=== PATIENT | male | born 1960 | race Caucasian/White ===

== ENCOUNTER → 2019-04-16 13:47 | Outpatient (CLI) | payer OTHER, SELFPAY ==
[2019-04-16 13:59] LABS: Basophils # 0.1 K/mm3 (0-0.2); Basophils % 0.9 % (0.1-2.0); Eosinophils # 0.3 K/mm3 (0.0-0.4); Eosinophils % 5.2 % (0.1-12.0); Hematocrit 46.6 % (42.0-52.0); Hemoglobin 15.6 g/dL (14.1-18.0); Lymphocytes # 2.4 K/mm3 (0.7-4.5); Lymphocytes % 39.8 % (10-50); Mean Corpuscular HGB Conc 33.4 g/dL (31.8-35.4); Mean Corpuscular Volume 92.7 fl (80-94); Mean Platelet Volume 7.6 fl (7.4-10.4); Monocytes # 0.5 K/mm3 (0.1-1.0); Monocytes % 8.9 % (1.7-9.3); Neutrophils # 2.8 K/mm3 (1.8-7.8); Neutrophils % 45.2 % (37.0-80.0); Platelet Count 261 K/mm3 (142-424); Red Blood Count 5.03 M/mm3 (4.60-6.20); Red Cell Distribution Width 13.1 % (11.5-17.5); White Blood Count 6.1 K/mm3 (4.8-10.8)
[2019-04-16 14:27] LABS: Alanine Aminotransferase 56 U/L (12-78); Albumin Level 3.7 gm/dL (3.4-5.0); Albumin/Globulin Ratio 1.2 (1.1-1.8); Alkaline Phosphatase 64 U/L (46-116); Anion Gap 11.6 mEq/L (5-15); Aspartate Amino Transferase 27 U/L (15-37); Bilirubin,Total 0.3 mg/dL (0.2-1.0); Blood Urea Nitrogen 14 mg/dL (7-18); Calcium 8.2 mg/dL (8.5-10.1); Carbon Dioxide 29 mmol/L (21.0-32.0); Chloride 103 mmol/L (98-107); Cholesterol 135 mg/dL (140-200); Creatinine,Serum 0.96 mg/dL (0.70-1.30); Estimated Glomerular Filt Rate 80 ml/min (>60); Free T4 (Free Thyroxine) 0.85 ng/dl (0.76-1.46); GFR (African American) 97 ML/MIN (>60); Glucose 116 mg/dL (74-106); HDL Cholesterol 34 mg/dL (27-67); LDL Cholesterol 56 mg/dL (0-130); Potassium 3.6 mmoL/L (3.5-5.1); Sodium 140 mmol/L (136-145); Thyroid Stimulating Hormone 1.62 uIU/ml (0.358-3.740); Total Protein,Serum 6.7 gm/dL (6.4-8.2); Triglycerides 225 mg/dL (30-200); VLDL Cholesterol 45 mg/dL (0-40)
[2019-04-18 06:26] LABS: PSA, Free 0.64 ng/mL; Prostate Specific Ag 5.1 ng/mL (0.0-4.0); Vitamin D 25 Hydroxy 28.8 ng/mL (30.0-100.0)
== END ==
PROVIDERS: Visit Provider Emergency Medicine
DX: I10 Essential (primary) hypertension (principal); R53.83 Other fatigue; E55.9 Vitamin D deficiency, unspecified
CPT/HCPCS: 80053; 80061; 82652; 84153; 84154; 84439; 84443; 85025

== ENCOUNTER → 2019-10-02 07:42 | Outpatient (CLI) | payer OTHER, SELFPAY ==
[2019-10-02 08:16] LABS: Basophils # 0.1 K/mm3 (0-0.2); Basophils % 1.2 % (0.1-2.0); Eosinophils # 0.3 K/mm3 (0.0-0.4); Eosinophils % 4.8 % (0.1-12.0); Hematocrit 50.5 % (42.0-52.0); Hemoglobin 16.7 g/dL (14.1-18.0); Lymphocytes # 2.5 K/mm3 (0.7-4.5); Lymphocytes % 38.3 % (10-50); Mean Corpuscular Hemoglobin 32.5 pg (27.0-31.2); Mean Corpuscular Volume 98.6 fl (80-94); Monocytes # 0.4 K/mm3 (0.1-1.0); Monocytes % 6.6 % (1.7-9.3); Neutrophils # 3.2 K/mm3 (1.8-7.8); Neutrophils % 49.2 % (37.0-80.0); Platelet Count 222 K/mm3 (142-424); Red Blood Count 5.13 M/mm3 (4.60-6.20); Red Cell Distribution Width 12.9 % (11.5-17.5); White Blood Count 6.5 K/mm3 (4.8-10.8)
[2019-10-02 08:50] LABS: Erythrocyte Sedimentation Rate 3 mm/hr (0-20)
[2019-10-02 11:04] LABS: Anion Gap 11.7 mEq/L (5-15); Blood Urea Nitrogen 16 mg/dL (7-18); Carbon Dioxide 31 mmol/L (21.0-32.0); Chloride 101 mmol/L (98-107); Creatinine,Serum 0.95 mg/dL (0.70-1.30); Estimated Glomerular Filt Rate 81 ml/min (>60); GFR (African American) 99 ML/MIN (>60); Glucose 132 mg/dL (74-106); Potassium 3.7 mmoL/L (3.5-5.1); Sodium 140 mmol/L (136-145); Uric Acid 3.7 mg/dL (2.6-7.2)
[2019-10-02 11:12] LABS: C-Reactive Protein < 0.2 mg/dL (0.0-0.9)
[2019-10-03 18:57] LABS: Hemoglobin A1C 6.5 % (0.0-7.0)
[2019-10-04 11:17] LABS: Anti-Cyclic Citrullinated Pept 9 units (0-19); Antinuclear Antibodies, IFA Positive (.)
[2019-10-04 11:19] LABS: RA Latex Turbid. <10.0 IU/mL (0.0-13.9)
== END ==
PROVIDERS: Visit Provider Emergency Medicine
DX: I10 Essential (primary) hypertension (principal); M19.90 Unspecified osteoarthritis, unspecified site
CPT/HCPCS: 36415; 80048; 83036; 84550; 85025; 85651; 86038; 86140; 86200; 86431

== ENCOUNTER → 2019-10-19 08:27 | Outpatient (CLI) | payer OTHER, SELFPAY ==
--- NOTE | 2019-10-19 08:29 | CA_ITS ---
APPROVED REPORT Lathe Winder: Eun Haider RVT Study Quality: Good Indications: hypertension Risk Factors Hypertension Hyperlipidemia Renal Artery Doppler Proximal (R) 106.3/ cm/sec Mid (R) 96.1/ cm/sec Distal (R) 121.3/ cm/sec Renal Aorta Ratio (R) 1.42 Segmental A. (R) 40.1/17.3 cm/sec RI: 0.56 Segmental A. Sup (R) 40.1/17.3 cm/sec Segmental A. Mid (R) 26.4/10.9 cm/sec Segmental A. Inf (R) 21.0/10.0 cm/sec Proximal (L) 88.5/ cm/sec Mid (L) 100.6/ cm/sec Distal (L) 140.4/ cm/sec Renal Aorta Ratio (L) 1.64 Segmental A. (L) 80.8/27.5 cm/sec RI: 0.65 Segmental A. Sup (L) 48.0/25.7 cm/sec Segmental A. Mid (L) 66.3/29.1 cm/sec Segmental A. Inf (L) 80.8/27.5 cm/sec Renal Measurements Kidney Size (R) 12.2x7.5 cm Cortical Thickness (R) 1.3 cm Kidney Size (L) 12.5x7.6 cm Cortical Thickness (L) 2.1 cm Findings Study suggests no evidence of bilateral renal artery stenosis. 3.8 cm cyst mid left kidney. Conclusion Study suggests no evidence of bilateral renal artery stenosis. 3.8 cm complex appearing cyst mid left kidney. Recommend CT renals without and with contrast 3 phase Electronically signed by : Frank Vizcaino MD 10/19/2019 17:19:47
== END ==
PROVIDERS: PCP Emergency Medicine; Visit Provider Emergency Medicine
DX: I10 Essential (primary) hypertension (principal)
CPT/HCPCS: 93976

== ENCOUNTER → 2020-01-04 08:50 | Outpatient (CLI) | payer MEDICAID, SELFPAY ==
[2020-01-04 10:44] LABS: Chloride 96 mmol/L (98-107); Potassium 3.4 mmoL/L (3.5-5.1); Sodium 135 mmol/L (136-145)
[2020-01-04 10:47] LABS: Anion Gap 11.4 mEq/L (5-15); Blood Urea Nitrogen 15 mg/dl (9-20); Calcium 9.3 mg/dl (8.4-10.2); Carbon Dioxide 31 mmol/L (22.0-30.0); Estimated Glomerular Filt Rate 99 ml/min (>60); GFR (African American) 120 ML/MIN (>60); Glucose 100 mg/dl (74-100)
== END ==
PROVIDERS: Visit Provider Emergency Medicine
DX: Z01.818 Encounter for other preprocedural examination (principal)
CPT/HCPCS: 36415; 80048

== ENCOUNTER → 2021-05-26 12:38 | Outpatient (CLI) | payer MEDICAID, SELFPAY ==
--- NOTE | 2021-05-26 12:49 | XR_ITS ---
PROCEDURE: XR CHEST 2V CLINICAL HISTORY: CHEST WALL PAIN COMPARISON: No exams were available for comparison FINDINGS: The cardiomediastinal silhouette and pulmonary vascularity are within normal limits. There is tortuosity/ectasia of the descending thoracic aorta. Lungs are clear bilaterally. No acute bony abnormalities. IMPRESSION: No acute findings. Dictated by: Frank Vizcaino MD 05/26/2021 14:16 Frank Vizcaino MD in [place] 05/26/2021 14:16
--- NOTE | 2021-05-26 12:50 | XR_ITS ---
PROCEDURE: XR RIBS LT 2V CLINICAL INDICATION: RIB FX Rib pain following injury COMPARISON: No exams were available for comparison FINDINGS: Multiple views of the left ribs are obtained. No acute fracture or dislocation is evident. There is some minimal cortical thickening involving the lateral aspect of the left 9th rib suggesting a healing or old fracture. No lytic or blastic change. IMPRESSION: No acute fracture apparent. Suspect old or healing left 9th rib fracture laterally. Dictated by: Frank Vizcaino MD 05/26/2021 14:14 Frank Vizcaino MD in [place] 05/26/2021 14:14
== END ==
PROVIDERS: PCP Emergency Medicine; Visit Provider Emergency Medicine
DX: R07.89 Other chest pain (principal)
CPT/HCPCS: 71046; 71100

== ENCOUNTER 2022-03-29 13:07 | Emergency (ER) | payer MEDICAID, SELFPAY ==
--- NOTE | 2022-03-29 13:17 | HMH.EDUTC ---
[facility] [place] Disposition Clinical Impression: Left lower lobe pneumonia Qualifiers: Pneumonia type: due to unspecified organism Qualified Code(s): J18.9 - Pneumonia, unspecified organism Disposition: Home, Self-Care Condition on Discharge: Good Instructions: Pneumonia-Adult Additional Instructions: Drink plenty of fluids. Take tylenol or ibuprofen for pain or fever. Take the medications as directed. Follow up with your regular doctor. GO TO THE ER FOR ANY WORSENING SYMPTOMS Don't start the oral steroids until tomorrow, since you had the shot here today. The cough medication (promethazine dm) will make you drowsy, so don't drive or operate heavy machinery after taking it. Make sure you follow up with your primary care physician for a recheck very soon. Also, you need to have a repeat chest x-ray in 1 to 2 weeks to make sure this is getting better, but your pcp will be the one to order that. Prescriptions: Albuterol Sulfate [Albuterol Sulfate Hfa] 2 puffs IH Q6HP PRN 30 Days #1 each PRN Reason: Shortness Of Breath Transmission Status: Received by [facility] Promethazine/Dextromethorphan [Promethazine-Dm Syrup] 5 ml PO Q6HP PRN #240 ml PRN Reason: Cough Transmission Status: Received by [facility] Amoxicillin/Potassium Clav [Amox-Clav 875-125 mg Tablet] 1 tab PO BID #20 tab Transmission Status: Received by [facility] predniSONE [Deltasone 10mg tablet] 10 mg PO DAILY 9 Days #21 tab Transmission Status: Received by [facility] Referrals: Glen Barrera MD [Primary Care Provider] - Time of Disposition: 14:15 Medical Decision Making - Medical Records Medical records reviewed: No: I reviewed the patient's medical records. - Ashwin Inquiry Pt receiving controlled substance: No Vital Signs: 03/29/22 13:22 03/29/22 14:21 Temperature 98.0 F 98.0 F Temperature Source Oral Pulse Rate 78 Pulse Rate [Left Radial] 78 Respiratory Rate 20 20 Blood Pressure 138/86 Blood Pressure [Right Arm] 138/86 Blood Pressure Mean [Right Arm] 103 02 Sat by Pulse Oximetry 93 L Orders (Tests/Meds): ED MEDICATIONS Discontinued Medications Generic Name Dose Route Start Last Admin Trade Name Freq PRN Reason Stop Dose Admin Ceftriaxone Sodium 1 gm 03/29/22 13:52 03/29/22 14:04 Ceftriaxone 1gm Vial IM 03/29/22 13:53 1 gm ONCE ONE Administration Lidocaine HCl 0 ml 03/29/22 13:52 03/29/22 14:04 Lidocaine 1% 5ml Pf Vial IM 03/29/22 13:53 2 ml ONCE ONE Administration Methylprednisolone Sodium Succinate 125 mg 03/29/22 13:52 03/29/22 14:04 Methylprednisolone Sod Succ 125mg Vial IM 03/29/22 13:53 125 mg ONCE ONE Administration - Radiology Data #1 Image(s): Chest Image Reviewed: Yes I reviewed the patient's radiology image, Yes I have reviewed radiologist's interpretation Preliminary Findings: Abnormal PROCEDURE INFORMATION: Exam: XR Chest Exam date and time: 03/29/2022 1:24 PM Age: 61 years old Clinical indication: Cough; Additional info: Cough, congestion TECHNIQUE: Imaging protocol: XR of the chest. Views: 2 views. COMPARISON: CR XR CHEST 2V 05/26/2021 12:55 PM FINDINGS: Lungs: Small consolidation within the posterior left lower lobe, most compatible with pneumonia. Minimal bibasilar atelectasis. Pleural spaces: Unremarkable. No pleural effusion. No pneumothorax. Heart/Mediastinum: Normal. Bones/joints: No acute abnormality. IMPRESSION: Small consolidation within the posterior left lower lobe, most compatible with pneumonia. Recommend follow-up. [facility] [place] HPI - General Stated complaint: cough, sneezing, congestion Time Seen by Provider: 03/29/22 13:18 - History of Present Illness Provider Complaint: He c/o cough and chest congestion for the past 1 week. - Related Data Previous Rx's Medication Ins
[2022-03-29 13:22] VITALS: BP 138/86; PULSE 78; RESP 20; TEMP 36.7; O2SAT 93; BMI 27.9
[2022-03-29 14:21] VITALS: BP 138/86; PULSE 78; RESP 20; TEMP 36.7
== END 2022-03-29 14:37 | disposition home or self-care (01) ==
PROVIDERS: Emergency Provider Nurse Practitioner Family; PCP Emergency Medicine
DX: J18.9 Pneumonia, unspecified organism (principal); F17.210 Nicotine dependence, cigarettes, uncomplicated; Z20.822 Contact with and (suspected) exposure to COVID-19; Z79.1 Long term (current) use of non-steroidal anti-inflammatories (NSAID); Z79.899 Other long term (current) drug therapy; Z88.8 Allergy status to other drugs, medicaments and biological substances
CPT/HCPCS: 71046; 96372; 99213; C9803; G0463; J0696; U0003; U0005

== ENCOUNTER → 2022-04-21 13:40 | Outpatient (CLI) | payer MEDICAID, SELFPAY ==
--- NOTE | 2022-04-21 13:41 | CA_ITS ---
APPROVED REPORT EXAM: Comprehensive 2D, Doppler, and color-flow Echocardiogram Quality Assurance Specialist: Lissette Mcpherson, RCS, RVS Ht: 5 ft 8 in Wt: 184lbs BSA: 1.97 BP: 130/76 mmHg Indications: COPD, Pneumonia, DERIAN, Smoker, HTN 2D Dimensions IVSd 1.20 cm LVEF (Visual) 62.80 % PWd 1.16 cm LA Volume 30.20 mL LVDd 3.64 cm LA Volume Index 15.30 mL/m2 (M/F) 16-34 LVDs 2.43 cm Aortic Root 3.10 cm Left Atrium 3.13 cm LVOT 1.96 cm (M/F) 1.5-2.5 Ascending Aorta 2.62 cm M-Mode Dimensions LA Diam 3.28 cm (1.9-4.0) LVDd 4.35 cm (3.5-5.7) Ao Diam 3.64 cm (2.0-3.7) LVDs 3.08 cm (3.5-5.7) EF (Teich) 56.30% EPSs 0.33 cm FS 29.20% EDV (Teich) 85.40 mL TAPSE 1.18 (<1.7) ESV (Teich) 37.30 mL LV Diastology E Decel Time 187.00 (160-240 msec) E/A Ratio 1.18 MED E' 6.80 (< 7 cm/sec) MED A' 10.80 cm/s E'/MED E' Ratio 9.51 (>14) LAT E' 8.00 (<10 cm/sec) LAT A' 8.50 cm/s E/LAT E' Ratio 8.09 (>14) Aortic Valve LVOT Max 74.00 (70-110 cm/s) LVOT VTI 15.51 cm AoV Peak Gary. 124.00 (50-130 cm/s) AO Peak GR. 6.20 mmHg AO Mean GR. 3.10 (<5 mmHg) AO VTI 24.21 (18-25 cm) YUDELKA (VTI) 1.93 (2.5-4.5 cm2) Mitral Valve MV A Velocity 55.00 (40-130 cm/s) E/A Ratio 1.18 MV Decel. Time 187.00 (160-240 ms) MV Mean Gr. 0.80 (<2mmHg) MV PHT 53.00 ms Pulmonary Valve PV Peak Velocity 70.00 (50-150 cm/s) Tricuspid Valve TR P. Velocity 232.00 cm/s RAP Estimate 10.00 mmHg RVSP 31.50 mmHg Left Ventricle Left atrium is mildly enlarged, left ventricle is normal size mild concentric left ventricular hypertrophy, estimated ejection fraction 55% with no regional wall motion abnormality, grade 1 diastolic dysfunction seen without tissue Doppler evidence of raise left atrial pressure. Right Ventricle Right atrium and right ventricle mildly enlarged with normal contractility. Aortic Valve Aortic valve is minimally thickened and fibrosed there is no aortic stenosis or aortic insufficiency. Mitral Valve Mitral valve is grossly normal, there is trace mitral regurgitation. Tricuspid Valve Tricuspid grossly normal, there is trace tricuspid regurgitation, tricuspid regurgitation jet velocity is inadequate for calculation of the right ventricular systolic pressure. Pulmonic Valve Pulmonic valve is poorly visualized. Great Vessels Aortic root is normal size. Inferior vena cava is poorly visualized. Pericardium No significant pericardial effusion noted. Conclusion 1. Mild biatrial enlargement, normal left ventricular size with concentric left ventricular hypertrophy, estimated ejection fraction 55% with no regional wall motion abnormality, grade 1 diastolic dysfunction without tissue Doppler evidence of raise left atrial pressure. 2. Mildly enlarged right ventricle with normal contractility. 3. Trace mitral and tricuspid regurgitation. 4. No significant pericardial effusion noted. 5. Inferior vena cava is poorly visualized. Electronically signed by : Richard Figueroa MD 04/21/2022 19:35:57
--- NOTE | 2022-04-21 13:41 | CA_ITS ---
FINAL REPORT TECHNIQUE: Color Doppler, duplex Doppler and yun scale sonography of the bilateral neck arterial vasculature was performed. Velocities were measured in the carotid arteries. Stenosis evaluation based on the validated velocity criteria. CLINICAL HISTORY: BRUIT,HTN,HX OF SMOKING FINDINGS: The peak systolic velocity of the right common carotid artery is 113 cm/s. The peak systolic velocity of the right internal carotid artery is 81 cm/s and end diastolic velocity 34 cm/s. The ICA/CCA ratio is 0.92. No significant plaque is present. The right external carotid artery is patent. The right vertebral artery is patent with antegrade flow. The peak systolic velocity of the left common carotid artery is 97 cm/s. The peak systolic velocity of the left internal carotid artery is 90 cm/s and end diastolic velocity 41 cm/s. The ICA/CCA ratio is 0.92. No significant plaque is present. The left external carotid artery is patent.The left vertebral artery is patent with antegrade flow. IMPRESSION: No evidence of bilateral carotid stenosis. Bilateral patent vertebral arteries with antegrade flow. Reviewed, Interpreted and Dictated by Nick Dickson III, MD Transcribed by Priyanka Grimaldo Authenticated and . [facility]
--- NOTE | 2022-04-21 14:26 | CT_ITS ---
FINAL REPORT CLINICAL HISTORY: lung cancer screening FINDINGS: CT CHEST SCREENING CTDI vol (mGy): 2.90 DLP (mGy-cm): 96.38 Axial images were obtained from the lung apex to the mid abdomen by computed tomography. Low-dose protocol was utilized. FINDINGS: CHEST: There is no axillary adenopathy. There is no hilar or mediastinal mass or adenopathy. The heart is proper size. There are mild coronary artery calcifications. There is no pericardial or pleural effusion. Limited images of the upper abdomen are unremarkable. Lung window images demonstrate mild scarring. There is diffuse bronchial wall thickening consistent with bronchitis. There is a 3 mm nodule at the left major fissure which favors an intrafissural lymph node. There is a 2 mm medial right lower lobe nodule. IMPRESSION: Medial right lower lobe lung nodule. Lung RADS category 2. Recommend 12 month follow-up low-dose chest CT. Reviewed, Interpreted and Dictated by Nick Dickson III, MD Transcribed by Carly Jose Authenticated and [facility]
== END ==
PROVIDERS: PCP Emergency Medicine; Visit Provider Emergency Medicine
DX: Z87.891 Personal history of nicotine dependence (principal); Z12.2 Encounter for screening for malignant neoplasm of respiratory organs; R09.89 Other specified symptoms and signs involving the circulatory and respiratory systems; R01.1 Cardiac murmur, unspecified
CPT/HCPCS: 71271; 93306; 93880

== ENCOUNTER 2022-09-26 15:00 | Emergency (ER) | payer MEDICAID, SELFPAY ==
[2022-09-26 17:20] VITALS: BP 147/92; PULSE 77; RESP 24; TEMP 37.2; O2SAT 95; BMI 27.3
[2022-09-26 17:28] LABS: UTC Influenza A Antigen Positive (Negative); UTC Influenza B Antigen Negative (Negative)
--- NOTE | 2022-09-26 17:38 | EXP.UTC ---
Discharge Plan Disposition Patient Disposition: Home, Self-Care Condition: Good Prescriptions Prescriptions: New benzonatate 100 mg capsule 100 mg PO TID PRN (Reason: cough) Qty: 30 0RF guaifenesin [Mucinex] 600 mg tablet extended release 12hr 600 mg PO BID PRN (Reason: cough) Qty: 20 0RF No Action gemfibrozil 600 mg tablet See Rx Instructions .ROUTE .COMPLEX Qty: 180 0RF Dose Instruction: TAKE 1 TABLET BY MOUTH TWICE DAILY Rx Instructions: TAKE 1 TABLET BY MOUTH TWICE DAILY amlodipine 5 mg tablet See Rx Instructions .ROUTE .COMPLEX Qty: 90 3RF Dose Instruction: TAKE 1 TABLET BY MOUTH DAILY Rx Instructions: TAKE 1 TABLET BY MOUTH DAILY losartan 100 mg tablet See Rx Instructions .ROUTE .COMPLEX Qty: 90 3RF Dose Instruction: TAKE 1 TABLET BY MOUTH DAILY Rx Instructions: TAKE 1 TABLET BY MOUTH DAILY potassium chloride 20 mEq tablet extended release See Rx Instructions .ROUTE .COMPLEX Qty: 90 3RF Dose Instruction: TAKE 1 TABLET BY MOUTH DAILY Rx Instructions: TAKE 1 TABLET BY MOUTH DAILY ergocalciferol (vitamin D2) 1,250 mcg (50,000 unit) capsule See Rx Instructions .ROUTE .COMPLEX Qty: 14 3RF Dose Instruction: TAKE 1 CAPSULE BY MOUTH WEEKLY ON SAME DAY EACH WEEK Rx Instructions: TAKE 1 CAPSULE BY MOUTH WEEKLY ON SAME DAY EACH WEEK cholecalciferol (vitamin D3) 25 mcg (1,000 unit) capsule See Rx Instructions .ROUTE .COMPLEX Qty: 90 0RF Dose Instruction: TAKE 1 CAPULE BY MOUTH ONCE DAILY Rx Instructions: TAKE 1 CAPULE BY MOUTH ONCE DAILY carvedilol 12.5 mg tablet See Rx Instructions .ROUTE .COMPLEX Qty: 180 0RF Dose Instruction: TAKE 1 TABLET BY MOUTH TWICE DAILY Rx Instructions: TAKE 1 TABLET BY MOUTH TWICE DAILY hydrochlorothiazide 25 mg tablet See Rx Instructions .ROUTE .COMPLEX Qty: 90 0RF Dose Instruction: TAKE 1 TABLET BY MOUTH DAILY Rx Instructions: TAKE 1 TABLET BY MOUTH DAILY simvastatin 20 mg tablet See Rx Instructions .ROUTE .COMPLEX Qty: 90 0RF Dose Instruction: TAKE 1 TABLET BY MOUTH EVERY EVENING Rx Instructions: TAKE 1 TABLET BY MOUTH EVERY EVENING albuterol sulfate 8.5 GM HFA aerosol inhaler 2 puffs IH Q6HP PRN (Reason: Shortness Of Breath) 30 Days Qty: 1 5RF Referrals Follow up/Referrals: Glen Barrera MD [Primary Care Provider] - See instructions Activity Restrictions/Add. Instructions Additional Instructions/Restrictions: Over the counter Cold and flu medications that is safe for high blood pressure may help your symptoms Make sure to drink plenty of fluids Lots of rest Increase Fluids water, Gatorade, powerade, pedialyte,if /toddler/child Alternate Tylenol and / or ibuprofen as discussed for fever, aches, chills Follow up IMMEDIATELY with your family doctor for new or worsening Symptoms OR no noticeable improvement over the next 48-72 hours, 911 for difficulty or breathing You or your child area contagious until no fever, aches, chills for 24 hours with medication for symptoms Help Prevent the spread of influenza: ?Wash your hands often. Use soap and water. Wash your hands after you use the bathroom, change a child's diapers, or sneeze. Wash your hands before you prepare or eat food. Use gel hand cleanser that has 60% alcohol, when soap and water are not available. Do not touch your eyes, nose, or mouth unless you have washed your hands first. Cover your mouth when you sneeze or cough. Cough into a tissue or the bend of your arm. If you use a tissue, throw it away immediately and wash your hands. Clean shared items with a germ-killing flue cleaner. Clean table surfaces, doorknobs, and light switches. Do not share towels, silverware, and dishes with people who are sick. Wash bed sheets, towels, silverware
[2022-09-26 17:47] VITALS: BP 147/92; PULSE 77; RESP 24; TEMP 37.2; O2SAT 95
== END 2022-09-26 17:53 | disposition home or self-care (01) ==
PROVIDERS: Emergency Provider Nurse Practitioner; PCP Emergency Medicine
DX: J10.1 Influenza due to other identified influenza virus with other respiratory manifestations (principal); R50.9 Fever, unspecified; R05.9 Cough, unspecified; R06.02 Shortness of breath; M79.10 Myalgia, unspecified site; R09.81 Nasal congestion; R51.9 Headache, unspecified; I10 Essential (primary) hypertension; N40.0 Benign prostatic hyperplasia without lower urinary tract symptoms; Z79.51 Long term (current) use of inhaled steroids; Z79.899 Other long term (current) drug therapy; Z88.8 Allergy status to other drugs, medicaments and biological substances; Z85.828 Personal history of other malignant neoplasm of skin
CPT/HCPCS: 87804; 99213; G0463

== ENCOUNTER 2022-12-13 09:32 | Emergency (ER) | payer MEDICAID, SELFPAY ==
[2022-12-13 10:30] VITALS: BP 168/101; PULSE 73; RESP 20; TEMP 36.5; O2SAT 95; BMI 28.1
--- NOTE | 2022-12-13 10:51 | EXP.UTC ---
Discharge Plan Disposition Patient Disposition: Home, Self-Care Condition: Good Prescriptions Prescriptions: New prednisone 10 mg tablet 10 mg PO BID 5 Days Qty: 10 0RF azithromycin [Zithromax Z-Christiano] 250 mg tablet See Rx Instructions .ROUTE .COMPLEX 5 Days Qty: 6 0RF Rx Instructions: For 250 mg dose pack: take 500 mg today (day 1), then 250 mg for 4 days (days 2-5) No Action gemfibrozil 600 mg tablet See Rx Instructions .ROUTE .COMPLEX Qty: 180 0RF Dose Instruction: TAKE 1 TABLET BY MOUTH TWICE DAILY Rx Instructions: TAKE 1 TABLET BY MOUTH TWICE DAILY amlodipine 5 mg tablet See Rx Instructions .ROUTE .COMPLEX Qty: 90 3RF Dose Instruction: TAKE 1 TABLET BY MOUTH DAILY Rx Instructions: TAKE 1 TABLET BY MOUTH DAILY losartan 100 mg tablet See Rx Instructions .ROUTE .COMPLEX Qty: 90 3RF Dose Instruction: TAKE 1 TABLET BY MOUTH DAILY Rx Instructions: TAKE 1 TABLET BY MOUTH DAILY potassium chloride 20 mEq tablet extended release See Rx Instructions .ROUTE .COMPLEX Qty: 90 3RF Dose Instruction: TAKE 1 TABLET BY MOUTH DAILY Rx Instructions: TAKE 1 TABLET BY MOUTH DAILY ergocalciferol (vitamin D2) 1,250 mcg (50,000 unit) capsule See Rx Instructions .ROUTE .COMPLEX Qty: 14 3RF Dose Instruction: TAKE 1 CAPSULE BY MOUTH WEEKLY ON SAME DAY EACH WEEK Rx Instructions: TAKE 1 CAPSULE BY MOUTH WEEKLY ON SAME DAY EACH WEEK carvedilol 12.5 mg tablet See Rx Instructions .ROUTE .COMPLEX Qty: 180 0RF Dose Instruction: TAKE 1 TABLET BY MOUTH TWICE DAILY Rx Instructions: TAKE 1 TABLET BY MOUTH TWICE DAILY simvastatin 20 mg tablet See Rx Instructions .ROUTE .COMPLEX Qty: 90 0RF Dose Instruction: TAKE 1 TABLET BY MOUTH EVERY EVENING Rx Instructions: TAKE 1 TABLET BY MOUTH EVERY EVENING cholecalciferol (vitamin D3) 25 mcg (1,000 unit) capsule See Rx Instructions .ROUTE .COMPLEX Qty: 90 0RF Dose Instruction: TAKE 1 CAPULE BY MOUTH ONCE DAILY Rx Instructions: TAKE 1 CAPULE BY MOUTH ONCE DAILY hydrochlorothiazide 25 mg tablet See Rx Instructions .ROUTE .COMPLEX Qty: 90 0RF Dose Instruction: TAKE 1 TABLET BY MOUTH DAILY Rx Instructions: TAKE 1 TABLET BY MOUTH DAILY benzonatate 100 mg capsule 100 mg PO TID PRN (Reason: cough) Qty: 30 0RF guaifenesin [Mucinex] 600 mg tablet extended release 12hr 600 mg PO BID PRN (Reason: cough) Qty: 20 0RF albuterol sulfate 8.5 GM HFA aerosol inhaler 2 puffs IH Q6HP PRN (Reason: Shortness Of Breath) 30 Days Qty: 1 5RF Referrals Follow up/Referrals: Glen Barrera MD [Primary Care Provider] - See instructions Activity Restrictions/Add. Instructions Additional Instructions/Restrictions: *Monitor Temp, Over the counter Motrin or Tylenol as directed/as needed Tylenol every 4 hours and Motrin every 6 hours (as long as your family doctor has told you that you can take it) for fever or pain. and straight to ER if unable to lower temp less than 101.0 after medication given *Warm salt water gargles may help to soothe the throat *Throat Lozenges? *Warm fluids like tea with honey may help to soothe the throat? *Sleep elevated *Humidifier/Vaporizer Follow up IMMEDIATELY for new or worsening symptoms or no Noticeable improvement over the next 48-72 hours. 911 for difficulty breathing or swallowing Clinical Impressions Clinical Impression: Sinusitis Instructions Patient Instructions: DI for Sinusitis, Sinusitis Discharge ED Provider: Zabrina Mayer [facility] General Stated complaint: Congestion Drainage Cough Mode of Arrival: Ambulatory Source of Information: Patient Limitations: No Limitations Time Seen by Provider: 12/13/22 10:51 Description of Symptoms (Recalled from Triage Doc. by RN): PATIENT C/O COUGH, RUNNY NOSE AND HEAD CONGESTION SINCE YESTERDAY HEENT Symptoms (Recall
[2022-12-13 10:57] VITALS: BP 168/101; PULSE 73; RESP 20; TEMP 36.5; O2SAT 95
== END 2022-12-13 11:00 | disposition home or self-care (01) ==
PROVIDERS: Emergency Provider Nurse Practitioner; PCP Emergency Medicine
DX: J32.9 Chronic sinusitis, unspecified (principal)
CPT/HCPCS: 99212; 99213; G0463

== ENCOUNTER → 2023-08-12 08:31 | Outpatient (CLI) | payer SELFPAY | PROVIDERS: PCP Emergency Medicine; Visit Provider Nurse Practitioner Family | DX: Z02.4 Encounter for examination for driving license (principal) ==

== ENCOUNTER → 2023-10-14 15:47 | Outpatient (CLI) | payer MEDICAID, SELFPAY ==
[2023-10-14 15:04] LABS: Basophils # 0.1 K/mm3 (0-0.2); Eosinophils # 0.3 K/mm3 (0.0-0.4); Eosinophils % 4.4 % (0.1-12.0); Hematocrit 46.9 % (42.0-52.0); Hemoglobin 16.6 g/dL (14.1-18.0); Lymphocytes # 2.5 K/mm3 (0.7-4.5); Lymphocytes % 34.8 % (10-50); Mean Corpuscular HGB Conc 35.4 g/dL (31.8-35.4); Mean Corpuscular Hemoglobin 33.5 pg (27.0-31.2); Mean Corpuscular Volume 94.6 fl (80-94); Mean Platelet Volume 9.2 fl (7.4-10.4); Monocytes # 0.5 K/mm3 (0.1-1.0); Monocytes % 6.5 % (1.7-9.3); Neutrophils # 3.8 K/mm3 (1.8-7.8); Neutrophils % 53.3 % (37.0-80.0); Platelet Count 242 K/mm3 (142-424); Red Blood Count 4.96 M/mm3 (4.60-6.20); Red Cell Distribution Width 13.1 % (11.5-17.5); White Blood Count 7.1 K/mm3 (4.8-10.8)
[2023-10-14 15:12] LABS: Alanine Aminotransferase 31 U/L (12-78); Albumin Level 4.4 g/dl (3.5-5.0); Albumin/Globulin Ratio 1.6 (1.1-1.8); Alkaline Phosphatase 64 U/L (38-126); Anion Gap 11.1 mEq/L (5-15); Aspartate Amino Transferase 31 U/L (17-59); Bilirubin,Total 0.7 mg/dl (0.2-1.3); Blood Urea Nitrogen 13 mg/dl (9-20); Calcium 8.6 mg/dl (8.4-10.2); Carbon Dioxide 33 mmol/L (22.0-30.0); Chloride 96 mmol/L (98-107); Cholesterol 180 mg/dl (140-200); Estimated Glomerular Filt Rate 114 ml/min (>60); GFR (African American) 138 ML/MIN (>60); Globulin 2.7 g/dL (1.3-3.2); Glucose 135 mg/dl (74-100); HDL Cholesterol 30 mg/dl (40-60); Potassium 3.1 mmoL/L (3.5-5.1); Sodium 137 mmol/L (136-145); Total Protein,Serum 7.1 g/dl (6.3-8.2); Triglycerides 194 mg/dl (30-150); VLDL Cholesterol 39 mg/dL (0-40)
[2023-10-14 15:23] LABS: Direct LDL Cholesterol 106.54 mg/dL (100-129)
[2023-10-14 15:28] LABS: 25-OH Vitamin D, Total 69.5 ng/mL (30-100)
[2023-10-14 15:40] LABS: Prostate Specific Ag Screen 5.5 ng/ml (0.0-4.0); Thyroid Stimulating Hormone 1.31 uIU/mL (0.465-4.68)
== END ==
PROVIDERS: PCP Physician Assistant; Visit Provider Physician Assistant
DX: Z00.00 Encounter for general adult medical examination without abnormal findings (principal); I10 Essential (primary) hypertension; E78.5 Hyperlipidemia, unspecified; Z72.0 Tobacco use; Z79.899 Other long term (current) drug therapy
CPT/HCPCS: 80053; 80061; 82306; 84443; 85025; G0103

== ENCOUNTER 2023-11-03 09:31 | Outpatient (CLI) | payer MEDICAID, SELFPAY ==
--- NOTE | 2023-11-03 09:46 | CT_ITS ---
FINAL REPORT TECHNIQUE: Axial CT images of the chest were obtained without contrast. Low-dose protocol was utilized. This study was performed with techniques to keep radiation doses as low as reasonably achievable (ALARA). Individualized dose reduction techniques using automated exposure control or adjustment of mA and/or kV according to the patient's size were employed. CLINICAL HISTORY: lung cancer screening CURRENT SMOKER 1PPD X 40 YEARS COMPARISON: 04/21/2022 FINDINGS: CT CHEST WITHOUT, LOW DOSE SCREENING CT Di Vol: 2.90 mGy DLP: 108.90 mGy*cm There is no axillary, mediastinal, or hilar adenopathy. The heart size is normal. Mild to moderate coronary artery calcifications. There is no pleural or pericardial effusion. The lung windows show the previously noted small right lower lobe nodule now appears calcified and consistent with a granuloma. The 3 mm anterior left lower lobe nodule seen on image 126 is stable. There is no new mass or nodule. Limited images of the upper abdomen demonstrate no acute findings. IMPRESSION: LR Category 2: 12 month follow-up low-dose chest CT is recommended. Reviewed, Interpreted and Dictated by Nick Dickson III, MD Transcribed by Carly Jose Authenticated and [facility]
[2023-11-03 10:14] LABS: Hemoglobin A1C 7.4 % (4.0-6.0)
[2023-11-03 10:21] LABS: Chloride 101 mmol/L (98-107)
[2023-11-03 10:22] LABS: Potassium 3.9 mmoL/L (3.5-5.1); Sodium 139 mmol/L (136-145)
[2023-11-03 10:24] LABS: Blood Urea Nitrogen 13 mg/dl (9-20); Estimated Glomerular Filt Rate 98 ml/min (>60); GFR (African American) 118 ML/MIN (>60)
[2023-11-03 10:25] LABS: Anion Gap 10.9 mEq/L (5-15); Calcium 8.7 mg/dl (8.4-10.2); Carbon Dioxide 31 mmol/L (22.0-30.0); Glucose 137 mg/dl (74-100)
[2023-11-03 10:53] LABS: Prostate Specific Ag, Diagnost 5.12 ng/ml (0.0-4.0)
== END 2023-11-03 23:59 ==
LOC: LAB 09:32
PROVIDERS: PCP Physician Assistant; Visit Provider Physician Assistant
DX: I10 Essential (primary) hypertension (principal); E78.5 Hyperlipidemia, unspecified; R97.20 Elevated prostate specific antigen [PSA]; Z87.891 Personal history of nicotine dependence; Z12.2 Encounter for screening for malignant neoplasm of respiratory organs; Z12.5 Encounter for screening for malignant neoplasm of prostate; Z79.899 Other long term (current) drug therapy
CPT/HCPCS: 36415; 71271; 80048; 83036; 84153

== ENCOUNTER 2024-08-09 14:49 | Emergency (ER) | payer MEDICAID, SELFPAY ==
[2024-08-09 14:49] VITALS: BP 154/93; PULSE 78; RESP 20; TEMP 36.8; O2SAT 97; BMI 25.0
--- NOTE | 2024-08-09 14:52 | ECG_ITS ---
APPROVED REPORT Exam: Resting ECG HR:72 bpm ECG Measurements Heart Rate 72 AXES ND 172 P 66 QRSd 93 QRS 62 QT 389 T 41 QTc 413 Conclusion SINUS RHYTHM NORMAL ECG Electronically signed by : KAREN BETHEA, 08/10/2024 03:22:26
[2024-08-09 15:01] VITALS: PULSE 78
[2024-08-09 15:03] VITALS: BP 140/92; PULSE 75; RESP 15; O2SAT 96
--- NOTE | 2024-08-09 15:03 | HMH.EDCP ---
Discharge Plan Disposition Patient Disposition: Home, Self-Care Condition: Good Prescriptions Prescriptions: No Action levofloxacin 750 mg tablet 750 mg PO DAILY Qty: 7 0RF (DME) blood-glucose meter [Advanced Glucose Meter] Misc See Rx Instructions .ROUTE .MEDSUPPLY Qty: 1 0RF Rx Instructions: USE TO TEST GLUCOSE BID (DME) Advanced Gluc Meter Test Strip Strip See Rx Instructions .ROUTE .MEDSUPPLY Qty: 10 0RF Rx Instructions: USE TO TEST GLUCOSE BID alcohol swabs [Alcohol Pads] Pads, Medicated 1 pad topical BID Qty: 200 3RF aspirin [Adult Aspirin Regimen] 81 mg tablet,delayed release (DR/EC) 81 mg PO DAILY Qty: 90 3RF (DME) lancets [Accu-Chek Softclix Lancets] Misc See Rx Instructions .Route Qty: 200 3RF Rx Instructions: USE TO TEST GLUCOSE BID ergocalciferol (vitamin D2) 1,250 mcg (50,000 unit) capsule See Rx Instructions .ROUTE .COMPLEX Qty: 14 3RF Dose Instruction: TAKE 1 CAPSULE BY MOUTH ONCE WEEKLY ON SAME DAY EACH WEEK. MAKE APPOINMENT FOR FUTURE REFILLS Rx Instructions: TAKE 1 CAPSULE BY MOUTH ONCE WEEKLY ON SAME DAY EACH WEEK. MAKE APPOINMENT FOR FUTURE REFILLS hydrochlorothiazide 25 mg tablet See Rx Instructions .ROUTE .COMPLEX Qty: 90 0RF Dose Instruction: TAKE 1 TABLET BY MOUTH DAILY Rx Instructions: TAKE 1 TABLET BY MOUTH DAILY amlodipine 5 mg tablet See Rx Instructions .ROUTE .COMPLEX Qty: 90 0RF Dose Instruction: TAKE 1 TABLET BY MOUTH DAILY Rx Instructions: TAKE 1 TABLET BY MOUTH DAILY losartan 100 mg tablet See Rx Instructions .ROUTE .COMPLEX Qty: 90 0RF Dose Instruction: TAKE 1 TABLET BY MOUTH DAILY Rx Instructions: TAKE 1 TABLET BY MOUTH DAILY cholecalciferol (vitamin D3) 25 mcg (1,000 unit) capsule See Rx Instructions .ROUTE .COMPLEX Qty: 90 0RF Dose Instruction: TAKE 1 CAPSULE BY MOUTH ONCE DAILY Rx Instructions: TAKE 1 CAPSULE BY MOUTH ONCE DAILY glipizide 10 mg tablet extended release 24hr See Rx Instructions .ROUTE .COMPLEX Qty: 90 0RF Dose Instruction: TAKE 1 TABLET BY MOUTH DAILY Rx Instructions: TAKE 1 TABLET BY MOUTH DAILY potassium chloride 20 mEq tablet extended release See Rx Instructions .ROUTE .COMPLEX Qty: 90 0RF Dose Instruction: TAKE 1 TABLET BY MOUTH DAILY Rx Instructions: TAKE 1 TABLET BY MOUTH DAILY carvedilol 12.5 mg tablet See Rx Instructions .ROUTE .COMPLEX Qty: 180 0RF Dose Instruction: TAKE 1 TABLET BY MOUTH TWICE DAILY Rx Instructions: TAKE 1 TABLET BY MOUTH TWICE DAILY simvastatin 20 mg tablet See Rx Instructions .ROUTE .COMPLEX Qty: 90 0RF Dose Instruction: TAKE 1 TABLET BY MOUTH EVERY EVENING Rx Instructions: TAKE 1 TABLET BY MOUTH EVERY EVENING Referrals Follow up/Referrals: Provider,Referral, MD [Referring] - See instructions Activity Restrictions/Add. Instructions Additional Instructions/Restrictions: As we discussed please follow-up with Dr. Bales tomorrow. Avoid spicy foods alcoholic beverages fatty foods or refined sugars totally for now until your pain is gone. Return to ER for any worsening signs or symptoms as needed. Clinical Impressions Clinical Impression: New onset type 2 diabetes mellitus Acute pancreatitis Qualifiers: Pancreatitis type: unspecified pancreatitis type Acute pancreatitis complication: unspecified Qualified Code(s): K85.90 - Acute pancreatitis without necrosis or infection, unspecified Instructions Patient Instructions: Acute Pancreatitis, DI for Diabetes Type 2 Print Language Print Language: Tongan Discharge ED Provider: Sreekanth Mattson HPI <PARVEEN Roman - Last Filed: 08/09/24 17:22> General Chief Complaint: Chest Pain Stated Complaint: Chest pain Time Seen by Provider: 08/09/24 15:03 Mode of Arrival: Ambulatory Source of Information: Patient Limitations: No Limitations Description of Symptoms (Recalled from ER Triage Doc. by RN): pt has been having a dull pulled muscle pain in his left chest and rib, denies any soa or swelling fever n/v/d, also denies dizziness History of Present Illness HPI narrative: Patient presents for evaluation of left-sided chest pain. Patient gives a history of 3 days of intermittent left-sided chest pain. Pain at the worst was 7 out of 10 and he is currently having pain in the level of 7 now. He denies any shortness of breath fever chills hemoptysis hematochezia melena hematemesis hematuria or abdominal pain. He has no known cardiac history but does have a history of hypertension hyperlipidemia smokes a pack of cigarettes a day and drinks socially only. 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 He also reports recent sinus infection that he is not been seen or evaluated for and has been treating [id number]. Related Data Previous Rx's ?Medication ?Instructions ?Recorded alcohol swabs (Alcohol Pads) 1 pad topical BID #200 ea 11/03/23 aspirin 81 mg tablet,delayed 81 mg PO DAILY Diabetes #90 tabs 11/03/23 release (Adult Aspirin Regimen) blood sugar diagnostic (Advanced #10 ea 11/03/23 Glucose Meter Test Strips) blood-glucose meter (Advanced #1 ea 11/03/23 Glucose Meter) lancets (Accu-Chek Softclix #200 ea 11/03/23 Lancets) ergocalciferol (vitamin D2) 1,250 See Rx Instructions .Route 01/24/24 mcg (50,000 unit) capsule .COMPLEX #14 caps amlodipine 5 mg tablet See Rx Instructions .Route 03/07/24 .COMPLEX #90 tabs hydrochlorothiazide 25 mg tablet See Rx Instructions .Route 03/07/24 .COMPLEX #90 tabs losartan 100 mg tablet See Rx Instructions .Route 04/06/24 .COMPLEX #90 tabs cholecalciferol (vitamin D3) 25 See Rx Instructions .Route 05/02/24 mcg (1,000 unit) capsule .COMPLEX #90 caps glipizide 10 mg tablet, extended See Rx Instructions .Route 05/10/24 release 24 hr .COMPLEX #90 tabs potassium chloride 20 mEq See Rx Instructions .Route 07/19/24 tablet,extended release .COMPLEX #90 tabs carvedilol 12.5 mg tablet See Rx Instructions .Route 08/06/24 .COMPLEX #180 tabs simvastatin 20 mg tablet See Rx Instructions .Route 08/06/24 .COMPLEX #90 tabs levofloxacin 750 mg tablet 750 mg PO DAILY #7 tabs 08/10/24 Allergies Allergy/AdvReac Type Severity Reaction Status Date / Time lisinopril AdvReac Mild cough Verified 08/10/24 08:16 [facility] <PARVEEN Roman - Last Filed: 08/09/24 17:22> [facility] Disclaimer: The information contained in this section may have been updated after the patient was seen, as this information can be updated by other users. Medical History (Updated 08/10/24 @ 09:34 by Alcides Bales MD) Vaccine counseling Pneumonia Screening for colon cancer New onset type 2 diabetes mellitus Pancreatitis Hypokalemia Diabetes Hyperlipidemia BPH (benign prostatic hyperplasia) Skin cancer Hypertension Surgical History History of colonoscopy History of eye surgery Social History Smoking Status: Current some day smoker tobacco type: cigarettes packs per day: 1 alcohol intake: current alcohol intake frequency: a few times a week substance use type: denies use current occupational status: employed Travel in the last 8 weeks: None household members: foster family and none housing: house Other Medical History Have you received the Pneumonia Vaccine: Yes <PARVEEN Roman - Last Filed: 08/09/24 17:22> ROS Obtained: Yes Systems reviewed as appropriate & no additional complaints except as documented Physical Exam <PARVEEN Roman - Last Filed: 08/09/24 17:22> General General appearance: alert and in no apparent distress Respiratory Respiratory exam: Present normal lung sounds bilaterally Cardiovascular Cardiovascular exam: Present regular rate Neurological Exam Neurological exam: Present alert and oriented X3 HEART Score <PARVEEN Roman - Last Filed: 08/09/24 17:22> HEART Score HEART Score assessment performed?: Yes History (anamnesis): Slightly suspicious ECG: Normal Age: 45-65 years Risk factors: 3 or more risk factors Troponin: </= normal limit HEART Score: 3 <Jairo Mix MD - Last Filed: 08/10/24 15:19> HEART Score HEART Score: 3 Critical Care <PARVEEN Roman - Last Filed: 08/09/24 17:22> Critical Care Time Critical Care Time: No Medical Decision Making <PARVEEN Roman - Last Filed: 08/09/24 17:22> Medical Records Medical records reviewed: Yes I reviewed the patient's medical records. Ashwin Inquiry Pt receiving controlled substance: No Vital Signs Vital Signs: 08/09/24 14:49 08/09/24 15:01 08/09/24 15:03 Temperature 98.2 F Temperature Source Oral Pulse Rate 78 75 Pulse Rate [Right Radial] 78 Respiratory Rate 20 15 Blood Pressure 140/92 H Blood Pressure [Right Arm] 154/93 H Blood Pressure Mean [Right Arm] 113 Blood Pressure Source Blood Pressure Position 02 Sat by Pulse Oximetry 97 96 Oxygen Delivery Method Room Air 08/09/24 17:40 Temperature 98.0 F Temperature Source Oral Pulse Rate 70 Pulse Rate [Right Radial] Respiratory Rate 18 Blood Pressure 155/100 H Blood Pressure [Right Arm] Blood Pressure Mean [Right Arm] Blood Pressure Source Automatic Cuff Blood Pressure Position Sitting 02 Sat by Pulse Oximetry Oxygen Delivery Method Room Air Lab Data Lab results reviewed: Yes I reviewed the patient's lab results. Labs: Lab Results 08/09/24 14:55: WBC 8.6, RBC 4.83, Hgb 15.5, Hct 43.6, MCV 90.3, MCH 32.0 H, MCHC 35.5 H, RDW 13.3, Plt Count 240, MPV 6.9 L, Neut % (Auto) 58.4, Lymph % (Auto) 30.3, [place] % (Auto) 6.0, Eos % (Auto) 4.1, Baso % (Auto) 1.1, Neut # (Auto) 5.0, Lymph # (Auto) 2.6, [place] # (Auto) 0.5, Eos # (Auto) 0.4, Baso # (Auto) 0.1, D-Dimer 0.26, Sodium 134 L, Potassium 3.2 L, Chloride 102, Carbon Dioxide 32 H, Anion Gap 3.2 L, BUN 17, Creatinine 0.80, Estimated Creat Clear 80, Estimated GFR 98, Est GFR ( Amer) 118, Glucose 243 H, Hemoglobin A1c 7.7 H, Calcium 9.0, Total Bilirubin 0.6, AST 27, ALT 34, Alkaline Phosphatase 59, Troponin I < 0.01, Total Protein 7.0, Albumin 4.3, Globulin 2.7, Albumin/Globulin Ratio 1.6, Triglycerides 215 H, Cholesterol 123 L, LDL Cholesterol Direct 54.38 L, VLDL Cholesterol 43 H, HDL Cholesterol 37 L, Cholesterol/HDL Ratio 3.3, Lipase 353 H 08/09/24 15:13: Chlamy pneumoniae PCR Not detected, Adenovirus (PCR) Not detected, B. pertussis DNA (PCR) Not detected, Coronavirus OC43 (PCR) Not detected, Coronavirus HKU1 (PCR) Not detected, Coronavirus 229E (PCR) Not detected, SARS-CoV-2 (PCR) Not detected, Coronavirus NL63 (PCR) Not detected, Human Metapneumovir PCR Not detected, Influenza A (H1) PCR Not detected, Influ A (H1N1/09) PCR Not detected, Influenza A (H3) PCR Not detected, Influenza Type A (PCR) Not detected, Influenza Type B (PCR) Not detected, M. pneumoniae (PCR) Not detected, Parainfluenza 1 (PCR) Not detected, Parainfluenza 2 (PCR) Not detected, Parainfluenza 3 (PCR) Not detected, Parainfluenza 4 (PCR) Not detected, RSV (PCR) Not detected, Entero/Rhino (PCR) Not detected 08/09/24 14:55 08/09/24 14:55 Response Orders (Tests/Meds): ED MEDICATIONS Discontinued Medications Generic Name Dose Route Start Last Admin Trade Name Freq PRN Reason Stop Dose Admin Acetaminophen 1,000 mg 08/09/24 15:05 08/09/24 15:16 Acetaminophen 500mg Tab PO 08/09/24 15:06 1,000 mg ONCE ONE Administration Belladonna Alkaloids 60 ml 08/09/24 15:05 08/09/24 15:16 Belladonna Alkaloids 60 Ml Ml PO 08/09/24 15:06 60 ml ONCE ONE Administration Iopamidol 70 ml 08/09/24 16:06 08/09/24 16:07 Iopamidol-370 (76%);100ml Bottle IV 08/09/24 16:07 70 ml ONCE ONE Administration Ketorolac Tromethamine 15 mg 08/09/24 15:05 08/09/24 15:16 Ketorolac 30mg/Ml Vial IV 08/09/24 15:06 15 mg ONCE ONE Administration Sodium Chloride 40 ml 08/09/24 16:06 08/09/24 16:07 0.9 % Sodium Chloride 50 Ml Vial IV 08/09/24 16:07 40 ml ONCE ONE Administration Sodium Chloride 10 ml 08/09/24 16:06 08/09/24 16:07 Sodium Chloride 0.9% 10ml Syr (Rad Only) IV 08/09/24 16:07 10 ml ONCE ONE Administration ORDERS Category Date Time Status CT abdomen pelvis w con Stat Cat Scan 08/09/24 15:[address] angio chest PE protocol Stat Cat Scan 08/09/24 15:41 Completed Chest XR 2 view (NOT portable) [XR chest 2V] Stat Exams 08/09/24 15:05 Completed CBC w/Auto Diff [Complete Blood Count Auto Diff] Stat Lab 08/09/24 14:55 Completed CMP [Comprehensive Metabolic Panel] Stat Lab 08/09/24 14:55 Completed D-Dimer Stat Lab 08/09/24 14:55 Completed Full Resp Panel w/COVID ([facility]) Routine Lab 08/09/24 15:13 Completed Hemoglobin A1C Stat Lab 08/09/24 14:55 Completed Lipase Stat Lab 08/09/24 14:55 Completed Lipid Panel Stat Lab 08/09/24 14:55 Completed Trop I [Troponin I] Stat Lab 08/09/24 14:55 Completed MDM Narrative Medical Decision Narrative: In summary patient is a 63-year-old male who presents to the emergency department for evaluation of chest pain. Patient is normotensive with a blood pressure of 154/93 pulse 78 respiratory rate is 20 O2 sat of 97% on room air upon arrival, afebrile at 98.2. Physical exam is remarkable for nonreproducible left-sided chest pain mid chest, normal breath sounds heard to the bases, sinus rhythm on the bedside monitor, patient is diaphoretic, no abdominal pain on palpation normal bowel sounds. Differential diagnosis includes pneumonia versus GERD versus ACS etc. Initial workup will be conducted with twelve-lead EKG, plain film chest x-ray, hematologic labs. Initial interventions include Tylenol Toradol GI cocktail. Initial workup reviewed by me and he has a slight hypokalemia however he is on oral potassium replacement, lipase is elevated over 300 but under thousand, nonfasting serum glucose greater than 200, hemoglobin A1c is 7.7, troponin is less than 0.01 and the remainder of his hematologic labs nonactionable. Upon repeat evaluation had interactive discussion with the patient about his findings and patient was unaware that he was a diabetic although he has been trying to curtail drinking sugared beverages and has lost a significant amount of weight since October of this year. He did know that he was considered prediabetic . Patient is able to tolerate oral intake currently and symptoms are moderately better after GI cocktail and initial interventions. Given this patient is appropriate for discharge after single troponin given that his diagnosis is likely related to his acute pancreatitis and his symptoms have persisted for more than 8 hours today with an undetectable troponin, he has follow-up with his PCP first thing tomorrow already established, and patient has strict return precautions <Jairo Mix MD - Last Filed: 08/10/24 15:19> Vital Signs Vital Signs: 08/09/24 14:49 08/09/24 15:01 08/09/24 15:03 Temperature 98.2 F Temperature Source Oral Pulse Rate 78 75 Pulse Rate [Right Radial] 78 Respiratory Rate 20 15 Blood Pressure 140/92 H Blood Pressure [Right Arm] 154/93 H Blood Pressure Mean [Right Arm] 113 Blood Pressure Source Blood Pressure Position 02 Sat by Pulse Oximetry 97 96 Oxygen Delivery Method Room Air 08/09/24 17:40 Temperature 98.0 F Temperature Source Oral Pulse Rate 70 Pulse Rate [Right Radial] Respiratory Rate 18 Blood Pressure 155/100 H Blood Pressure [Right Arm] Blood Pressure Mean [Right Arm] Blood Pressure Source Automatic Cuff Blood Pressure Position Sitting 02 Sat by Pulse Oximetry Oxygen Delivery Method Room Air Lab Data Labs: Lab Results 08/09/24 14:55: WBC 8.6, RBC 4.83, Hgb 15.5, Hct 43.6, MCV 90.3, MCH 32.0 H, MCHC 35.5 H, RDW 13.3, Plt Count 240, MPV 6.9 L, Neut % (Auto) 58.4, Lymph % (Auto) 30.3, [place] % (Auto) 6.0, Eos % (Auto) 4.1, Baso % (Auto) 1.1, Neut # (Auto) 5.0, Lymph # (Auto) 2.6, [place] # (Auto) 0.5, Eos # (Auto) 0.4, Baso # (Auto) 0.1, D-Dimer 0.26, Sodium 134 L, Potassium 3.2 L, Chloride 102, Carbon Dioxide 32 H, Anion Gap 3.2 L, BUN 17, Creatinine 0.80, Estimated Creat Clear 80, Estimated GFR 98, Est GFR ( Amer) 118, Glucose 243 H, Hemoglobin A1c 7.7 H, Calcium 9.0, Total Bilirubin 0.6, AST 27, ALT 34, Alkaline Phosphatase 59, Troponin I < 0.01, Total Protein 7.0, Albumin 4.3, Globulin 2.7, Albumin/Globulin Ratio 1.6, Triglycerides 215 H, Cholesterol 123 L, LDL Cholesterol Direct 54.38 L, VLDL Cholesterol 43 H, HDL Cholesterol 37 L, Cholesterol/HDL Ratio 3.3, Lipase 353 H 08/09/24 15:13: Chlamy pneumoniae PCR Not detected, Adenovirus (PCR) Not detected, B. pertussis DNA (PCR) Not detected, Coronavirus OC43 (PCR) Not detected, Coronavirus HKU1 (PCR) Not detected, Coronavirus 229E (PCR) Not detected, SARS-CoV-2 (PCR) Not detected, Coronavirus NL63 (PCR) Not detected, Human Metapneumovir PCR Not detected, Influenza A (H1) PCR Not detected, Influ A (H1N1/09) PCR Not detected, Influenza A (H3) PCR Not detected, Influenza Type A (PCR) Not detected, Influenza Type B (PCR) Not detected, M. pneumoniae (PCR) Not detected, Parainfluenza 1 (PCR) Not detected, Parainfluenza 2 (PCR) Not detected, Parainfluenza 3 (PCR) Not detected, Parainfluenza 4 (PCR) Not detected, RSV (PCR) Not detected, Entero/Rhino (PCR) Not detected Response Orders (Tests/Meds): ED MEDICATIONS Discontinued Medications Generic Name Dose Route Start Last Admin Trade Name Freq PRN Reason Stop Dose Admin Acetaminophen 1,000 mg 08/09/24 15:05 08/09/24 15:16 Acetaminophen 500mg Tab PO 08/09/24 15:06 1,000 mg ONCE ONE Administration Belladonna Alkaloids 60 ml 08/09/24 15:05 08/09/24 15:16 Belladonna Alkaloids 60 Ml Ml PO 08/09/24 15:06 60 ml ONCE ONE Administration Iopamidol 70 ml 08/09/24 16:06 08/09/24 16:07 Iopamidol-370 (76%);100ml Bottle IV 08/09/24 16:07 70 ml ONCE ONE Administration Ketorolac Tromethamine 15 mg 08/09/24 15:05 08/09/24 15:16 Ketorolac 30mg/Ml Vial IV 08/09/24 15:06 15 mg ONCE ONE Administration Sodium Chloride 40 ml 08/09/24 16:06 08/09/24 16:07 0.9 % Sodium Chloride 50 Ml Vial IV 08/09/24 16:07 40 ml ONCE ONE Administration Sodium Chloride 10 ml 08/09/24 16:06 08/09/24 16:07 Sodium Chloride 0.9% 10ml Syr (Rad Only) IV 08/09/24 16:07 10 ml ONCE ONE Administration ORDERS Category Date Time Status CT abdomen pelvis w con Stat Cat Scan 08/09/24 15:[address] angio chest PE protocol Stat Cat Scan 08/09/24 15:41 Completed Chest XR 2 view (NOT portable) [XR chest 2V] Stat Exams 08/09/24 15:05 Completed CBC w/Auto Diff [Complete Blood Count Auto Diff] Stat Lab 08/09/24 14:55 Completed CMP [Comprehensive Metabolic Panel] Stat Lab 08/09/24 14:55 Completed D-Dimer Stat Lab 08/09/24 14:55 Completed Full Resp Panel w/COVID (H) Routine Lab 08/09/24 15:13 Completed Hemoglobin A1C Stat Lab 08/09/24 14:55 Completed Lipase Stat Lab 08/09/24 14:55 Completed Lipid Panel Stat Lab 08/09/24 14:55 Completed Trop I [Troponin I] Stat Lab 08/09/24 14:55 Completed MDM Narrative Medical Decision Narrative: In summary patient is a 63-year-old male who presents to the emergency department for evaluation of chest pain. Patient is normotensive with a blood pressure of 154/93 pulse 78 respiratory rate is 20 O2 sat of 97% on room air upon arrival, afebrile at 98.2. Physical exam is remarkable for nonreproducible left-sided chest pain mid chest, normal breath sounds heard to the bases, sinus rhythm on the bedside monitor, patient is diaphoretic, no abdominal pain on palpation normal bowel sounds. Differential diagnosis includes pneumonia versus GERD versus ACS etc. Initial workup will be conducted with twelve-lead EKG, plain film chest x-ray, hematologic labs. Initial interventions include Tylenol Toradol GI cocktail. Initial workup reviewed by me and he has a slight hypokalemia however he is on oral potassium replacement, lipase is elevated over 300 but under thousand, nonfasting serum glucose greater than 200, hemoglobin A1c is 7.7, troponin is less than 0.01 and the remainder of his hematologic labs nonactionable. Upon repeat evaluation had interactive discussion with the patient about his findings and patient was unaware that he was a diabetic although he has been trying to curtail drinking sugared beverages and has lost a significant amount of weight since October of this year. He did know that he was considered prediabetic . Patient is able to tolerate oral intake currently and symptoms are moderately better after GI cocktail and initial interventions. Given this patient is appropriate for discharge after single troponin given that his diagnosis is likely related to his acute pancreatitis and his symptoms have persisted for more than 8 hours today with an undetectable troponin, he has follow-up with his PCP first thing tomorrow already established, and patient has strict return precautions I was consulted by the RIVERA, and we discussed the complexity of the problems being addressed. I approved the treatment and management plan for this patient's care in the Emergency Department, thus performing a substantive portion of the medical decision making. Jairo Mix MD
--- NOTE | 2024-08-09 15:05 | XR_ITS ---
FINAL REPORT CLINICAL HISTORY: Chest pain on left side of chest x 3 days smoker COMPARISON: 03/29/2022 FINDINGS: Two views of the chest were obtained. The heart size and pulmonary vascularity are within normal limits. The mediastinum is normal. There is mild bronchial wall thickening which may represent bronchitis. There is no acute infiltrate. There is no pneumothorax. The bony thorax is intact. IMPRESSION: Mild bronchial wall thickening may represent bronchitis. Reviewed, Interpreted and Dictated by Nick Dickson III, MD Transcribed by Loida Dumas Authenticated and [facility]
[2024-08-09] MEDS: BELLADONNA ALKALOIDS 60 ML ML PO (15:16)
[2024-08-09] MEDS: ACETAMINOPHEN 500MG TAB 1000 MG PO (15:16)
[2024-08-09] MEDS: KETOROLAC 30MG/ML VIAL 15 MG IV (15:16)
[2024-08-09 15:17] LABS: Adenovirus,PCR Not Detected (NotDetected); Bordetella Pertussis Not Detected (NotDetected); Chlamydophila Pneumoniae, PCR Not Detected (NotDetected); Coronavirus 19, PCR Not Detected (NotDetected); Coronavirus 229E Not Detected (NotDetected); Coronavirus NL63 Not Detected (NotDetected); Coronavirus OC43 Not Detected (NotDetected); Coronovirus HKU1,PCR Not Detected (NotDetected); Human Metapneumovirus Not Detected (NotDetected); Influenza A, PCR Not Detected (NotDetected); Influenza AH1, 2009 Not Detected (NotDetected); Influenza AH1, PCR Not Detected (NotDetected); Influenza AH3,PCR Not Detected (NotDetected); Influenza B, PCR Not Detected (NotDetected); Mycoplasma Pneumoniae, PCR Not Detected (NotDetected); Parainfluenza 1, PCR Not Detected (NotDetected); Parainfluenza 2, PCR Not Detected (NotDetected); Parainfluenza 3, PCR Not Detected (NotDetected); Parainfluenza 4, PCR Not Detected (NotDetected); Respiratory Syncytial Virus Not Detected (NotDetected); Rhinovirus/Enterovirus Not Detected (NotDetected)
--- NOTE | 2024-08-09 15:20 | PC.NURSE ---
patient gone to RAD at this time.
--- NOTE | 2024-08-09 15:23 | PC.NURSE ---
patient back in room at this time.
--- NOTE | 2024-08-09 15:23 | PC.NURSE ---
PT RETURNED FROM XR
[2024-08-09 15:24] LABS: Basophils # 0.1 K/mm3 (0-0.2); Basophils % 1.1 % (0.1-2.0); Eosinophils # 0.4 K/mm3 (0.0-0.4); Eosinophils % 4.1 % (0.1-12.0); Hematocrit 43.6 % (42.0-52.0); Hemoglobin 15.5 g/dL (14.1-18.0); Lymphocytes # 2.6 K/mm3 (0.7-4.5); Lymphocytes % 30.3 % (10-50); Mean Corpuscular HGB Conc 35.5 g/dL (31.8-35.4); Mean Corpuscular Volume 90.3 fl (80-94); Mean Platelet Volume 6.9 fl (7.4-10.4); Monocytes # 0.5 K/mm3 (0.1-1.0); Neutrophils % 58.4 % (37.0-80.0); Platelet Count 240 K/mm3 (142-424); Red Blood Count 4.83 M/mm3 (4.60-6.20); Red Cell Distribution Width 13.3 % (11.5-17.5); White Blood Count 8.6 K/mm3 (4.8-10.8)
[2024-08-09 15:27] LABS: Alanine Aminotransferase 34 U/L (12-78); Alkaline Phosphatase 59 U/L (38-126); Aspartate Amino Transferase 27 U/L (17-59); Bilirubin,Total 0.6 mg/dl (0.2-1.3); Chloride 102 mmol/L (98-107); Glucose 243 mg/dl (74-100); Lipase 353 U/L (23-300); Potassium 3.2 mmoL/L (3.5-5.1); Sodium 134 mmol/L (136-145)
[2024-08-09 15:29] LABS: Albumin Level 4.3 g/dl (3.5-5.0); Albumin/Globulin Ratio 1.6 (1.1-1.8); Anion Gap 3.2 mEq/L (5-15); Blood Urea Nitrogen 17 mg/dl (9-20); Carbon Dioxide 32 mmol/L (22.0-30.0); Creatinine Clearance Estimated 80 mL/min (50-200); Estimated Glomerular Filt Rate 98 ml/min (>60); GFR (African American) 118 ML/MIN (>60); Globulin 2.7 g/dL (1.3-3.2)
[2024-08-09 15:32] LABS: D-Dimer 0.26 ug/mL (0.0-0.5)
--- NOTE | 2024-08-09 15:40 | CT_ITS ---
FINAL REPORT CLINICAL HISTORY: Left-sided chest pain, elevated lipase COMPARISON: None FINDINGS: CT OF THE ABDOMEN AND PELVIS WITH CONTRAST Axial CT images of the abdomen and pelvis were obtained after the administration of IV contrast. Coronal reformatted images were also obtained and reviewed.This study was performed with techniques to keep radiation doses as low as reasonably achievable (ALARA). Individualized dose reduction techniques using automated exposure control or adjustment of mA and/or kV according to the patient''s size were employed. Abdomen: There is a 19 mm contrast-enhancing mass in the lateral segment of the left hepatic lobe which is nonspecific and could represent a hemangioma. There is mild nonspecific gallbladder wall thickening. The spleen is unremarkable. Mild adrenal gland enlargement is favored to represent hyperplasia. There is heterogeneity of the tail of the pancreas with adjacent stranding consistent with acute pancreatitis. There is a left renal cyst and bilateral parapelvic cysts. The aorta is normal in caliber. There are moderate vascular calcifications. There is no free fluid or adenopathy. No mass or abnormal fluid collection is seen. Pelvis: The appendix is normal. Sigmoid diverticulosis is noted. Prostate enlargement is seen. The urinary bladder is unremarkable. There is a small right inguinal hernia containing fat. There is no evidence of mass or adenopathy. There is no evidence of bowel obstruction. IMPRESSION: Acute focal pancreatitis in the tail of the pancreas. Reviewed, Interpreted and Dictated by Nick Dickson III, MD Transcribed by Carly Jose Authenticated and . [facility]
[2024-08-09 15:41] LABS: Troponin I < 0.01 ng/ml (0.00-0.034)
--- NOTE | 2024-08-09 15:41 | CT_ITS ---
FINAL REPORT TECHNIQUE: Thin section axial CT images were performed from the lung apices to the upper abdomen after the administration of IV contrast. 3-D and MIP reconstructions performed. This study was performed with techniques to keep radiation doses as low as reasonably achievable (ALARA). Individualized dose reduction techniques using automated exposure control or adjustment of mA and/or kV according to the patient's size were employed. CLINICAL HISTORY: Left-sided chest pain COMPARISON: Low-dose chest CT dated 11/03/2023 FINDINGS: There is no evidence for pulmonary embolism. The thoracic aorta is patent without evidence of aneurysm or dissection. There is no axillary adenopathy. There is no mediastinal or hilar adenopathy. The heart size is normal. There is no pleural or pericardial effusion. There are new, multifocal, mild groundglass opacities in the right upper lobe which may represent mild pneumonia. There is mild dependent atelectasis. Limited images of the upper abdomen demonstrate a left renal cyst and bilateral parapelvic cysts. There is mild bilateral adrenal gland enlargement, favor hyperplasia. The distal tail of the pancreas has an abnormal appearance with adjacent stranding which likely represents focal, acute, pancreatitis. IMPRESSION: No evidence of pulmonary embolism or aortic dissection. Multifocal groundglass opacities in the right upper lobe may represent mild pneumonia. Abnormal appearance of the distal tail of the pancreas with adjacent stranding likely represents focal acute pancreatitis. Reviewed, Interpreted and Dictated by Nick Dickson III, MD Transcribed by Loida Dumas Authenticated and [facility]
--- NOTE | 2024-08-09 15:53 | PC.NURSE ---
PT TO CT
[2024-08-09] MEDS: IOPAMIDOL-370 (76%);100ML BOTTLE 70 ML IV (16:07)
[2024-08-09] MEDS: SODIUM CHLORIDE 0.9% 10ML SYR (RAD ONLY) 10 ML IV (16:07)
[2024-08-09] MEDS: 0.9 % SODIUM CHLORIDE 50 ML VIAL 40 ML IV (16:07)
[2024-08-09 16:09] LABS: Hemoglobin A1C 7.7 % (4.0-6.0)
--- NOTE | 2024-08-09 16:14 | PC.NURSE ---
PT RETURNED FROM CT
[2024-08-09 17:26] LABS: Chol/HDL Ratio 3.3 (1-3.5); Cholesterol 123 mg/dl (140-200); HDL Cholesterol 37 mg/dl (40-60); Triglycerides 215 mg/dl (30-150); VLDL Cholesterol 43 mg/dL (0-40)
[2024-08-09 17:37] LABS: Direct LDL Cholesterol 54.38 mg/dL (100-129)
[2024-08-09 17:40] VITALS: BP 155/100; PULSE 70; RESP 18; TEMP 36.7; O2SAT 96
== END 2024-08-09 17:40 | disposition home or self-care (01) ==
PROVIDERS: Physician Assistant; Emergency Provider Student in an Organized Health Care Education/Training Program; PCP Family Medicine
DX: K85.90 Acute pancreatitis without necrosis or infection, unspecified (principal); E11.9 Type 2 diabetes mellitus without complications; R07.9 Chest pain, unspecified
CPT/HCPCS: 71046; 71275; 74177; 80053; 80061; 83036; 83690; 84484; 85025; 85378; 87265; 87486; 87581; 87632; 87635; 93005; 96374; 99285; J1885; Q9967

== ENCOUNTER 2024-08-10 09:11 | Outpatient (CLI) | payer MEDICAID, SELFPAY ==
[2024-08-10 18:17] LABS: Anion Gap 4.1 mEq/L (5-15); Blood Urea Nitrogen 16 mg/dl (9-20); Calcium 9.1 mg/dl (8.4-10.2); Carbon Dioxide 32 mmol/L (22.0-30.0); Chloride 100 mmol/L (98-107); Estimated Glomerular Filt Rate 114 ml/min (>60); GFR (African American) 138 ML/MIN (>60); Glucose 182 mg/dl (74-100); Lipase 334 U/L (23-300); Potassium 3.1 mmoL/L (3.5-5.1); Sodium 133 mmol/L (136-145)
== END 2024-08-10 23:59 | disposition home or self-care (01) ==
LOC: LAB.DROPOF 08-11 10:08
PROVIDERS: PCP Family Medicine; Visit Provider Family Medicine
DX: E87.6 Hypokalemia (principal); K85.90 Acute pancreatitis without necrosis or infection, unspecified
CPT/HCPCS: 80048; 83690

== ENCOUNTER 2024-08-17 08:37 | Outpatient (CLI) | payer MEDICAID, SELFPAY ==
--- NOTE | 2024-08-17 08:38 | US_ITS ---
PROCEDURE INFORMATION: Exam: US Abdomen, Limited; Right Upper Quadrant Exam date and time: 08/17/2024 9:39 AM Age: 63 years old Clinical indication: Abdominal pain; Additional info: Pancreatitis TECHNIQUE: Imaging protocol: Real time ultrasound of the abdomen with image documentation. Limited exam focused on the right upper quadrant. COMPARISON: No relevant prior studies available. FINDINGS: Liver: Normal echogenicity. No mass. No intrahepatic bile duct dilatation. Gallbladder: No gallstones. No wall thickening. No pericholecystic fluid. No sonographic Yeager's sign. Biliary ducts: No dilatation. No stones. Pancreas: Obscured by overlying bowel gas. Right kidney: Normal echogenicity. No hydronephrosis. IMPRESSION: No acute findings.
== END 2024-08-17 23:59 | disposition home or self-care (01) ==
LOC: RAD 08:38
PROVIDERS: PCP Family Medicine; Visit Provider Family Medicine
DX: K85.90 Acute pancreatitis without necrosis or infection, unspecified (principal)
CPT/HCPCS: 76705

== ENCOUNTER 2024-08-28 09:00 | Outpatient (CLI) | payer MEDICAID, SELFPAY ==
[2024-08-28 18:59] LABS: Anion Gap 15.1 mEq/L (5-15); Blood Urea Nitrogen 17 mg/dl (9-20); Calcium 9.5 mg/dl (8.4-10.2); Carbon Dioxide 30 mmol/L (22.0-30.0); Chloride 97 mmol/L (98-107); Estimated Glomerular Filt Rate 114 ml/min (>60); GFR (African American) 138 ML/MIN (>60); Glucose 136 mg/dl (74-100); Potassium 4.1 mmoL/L (3.5-5.1); Sodium 138 mmol/L (136-145)
== END 2024-08-28 23:59 | disposition home or self-care (01) ==
LOC: LAB.DROPOF 08-29 12:43
PROVIDERS: PCP Family Medicine; Visit Provider Family Medicine
DX: E87.6 Hypokalemia (principal)
CPT/HCPCS: 80048

== ENCOUNTER 2024-09-12 07:03 | Outpatient (CLI) | payer MEDICAID, SELFPAY | END 2024-09-12 23:59 | disposition home or self-care (01) | PROVIDERS: PCP Family Medicine; Visit Provider Family Medicine | DX: K85.90 Acute pancreatitis without necrosis or infection, unspecified (principal) ==

== ENCOUNTER 2024-09-14 07:14 | Outpatient (CLI) | payer MEDICAID, SELFPAY ==
--- NOTE | 2024-09-14 | CA_ITS ---
APPROVED REPORT Exam: Exercise Treadmill Technologist: Yaima Waldron Ht: 5 ft 8 in Wt: 171 lbs BSA: 1.91 m2 HR: 57 bpm BP: 148/91 mmHg Rhythm: Sinus bradycardia, otherwise normal Medical History Medical History: HTN, Hyperlipidemia, Diabetes, Smoking Medications: Amlodipine, Carvedilol, Vit D3, Vit D2, Glipizide ER, Hydrochlorothiazide, Losartan, Potassium Chloride ER, Simvastatin, Metformin Allergies: Lisinopril Cardiac Risk Factors: HTN, Hyperlipidemia, Diabetes, Smoking Stress Test Details Test: Exercise stress testing was performed using a modified Sean protocol. HR Resting HR: 57 bpm Max Heart Rate (APMHR): 157.674378 bpm Max HR Achieved: 141 bpm Target HR (85% APMHR): 133.518497 bpm % of APMHR: 89.81 Recovery HR: 83 bpm BP Resting BP: 148.0/91.0 mmHg Max BP: 184.0/82.0 mmHg Recovery BP: 141.0/78.0 mmHg ECG Resting ECG: Sinus bradycardia, otherwise normal Clinical Highest Stage Achieved: Stage 3: 3.4 mph at 14% grade. Stress ECG Conclusion Pt exercised 8:00 on Sean protocol Max HR: 141 % of PM: 89% Max BP: 184/82 Mets: 10.3 Test stopped due to: soa and fatigue No cp Rare PAC Approx 1.5mm of horizontal and upsloping ST depression laterally and 0.5mm horizontal ST depression inferiorly EKG changes positive for ischemia without CP Myoview images reported separately Electronically signed by : Enma Mckay MD 09/17/2024 01:07:18
--- NOTE | 2024-09-14 07:15 | NM_ITS ---
APPROVED REPORT Exam: Nuclear Stress Test Indication: hypertension, diabetes, hyperlipidemia, tob use, palpatations Patient Location: Outpatient Stress Tech: Adwoa CALZADA Tech:YORDY Regalado RT (R)(N)(M) Ht: 5 ft 7 in Wt: 167 lbs HR: 55 bpm BP: 148/91 mmHg BSA: 1.87 m2 TID: 0.94 BMI: 26.1 History: hypertension, diabetes, hyperlipidemia, tob use, palpatations Procedure: Patient exercised on Sean protocol 8:00 minutes and sec, resting heart rate 55 bpm, resting blood pressure 148/91 mmHg, with exercise maximum heart rate achived was 142 bpm which is 89 % of the maximum predicted heart rate and blood pressure was 184/82 mmHg. Test was stopped due to fatigue. Patient denied any complaint of chest pain. Patient has Average exercise capacity, achieved 10.3 METs of workload on treadmill, the blood pressure response to exercise was Normal. Cardiac Stress and Resting SPECT Images: Cardiac Stress and Resting SPECT images were obtained using technetium 99m Myoview 30.6 mCi stress and 10.98 mCi at rest. Resting and stress imaging in supine and prone positions demonstrate a medium sized, moderate, partially reversible perfusion defect in the inferior LV wall. Gated imaging demonstrates low-normal global LV systolic function. There is mild hypokinesis of the basal inferior LV wall. LVEF is calculated at 50%. Conclusion: Medium sized, moderate, partially reversible perfusion defect in the inferior LV wall. Findings are suggestive of partial reversible ischemia. Gated imaging demonstrates low-normal global LV systolic function. There is mild hypokinesis of the basal inferior LV wall. LVEF is calculated at 50%. Electronically signed by : Enma Mckay MD 09/17/2024 01:13:35
[2024-09-14] MEDS: SODIUM CHLORIDE 0.9% 10ML SYR (RAD ONLY) 10 ML IV ×2 (10:23)
[2024-09-14] MEDS: ISOTOPE MYOVIEW (PER STUDY) 1 DOSE IV (10:23)
== END 2024-09-14 23:59 | disposition home or self-care (01) ==
LOC: RAD 07:15
PROVIDERS: PCP Family Medicine; Visit Provider Family Medicine
DX: R07.9 Chest pain, unspecified (principal); E11.9 Type 2 diabetes mellitus without complications
CPT/HCPCS: 78452; 93017; 93018; A9502

== ENCOUNTER 2024-09-26 07:23 | Outpatient (CLI) | payer MEDICAID, SELFPAY ==
--- NOTE | 2024-09-26 07:26 | CT_ITS ---
APPROVED REPORT Needle Loom Tender: CLINICAL INDICATION Chest Pain TECHNIQUE Image Acquisition: A 128 slice MDCT scanner ([employer]) was used for data acquisition. A noncontrast coronary calcium scan was performed. A CT attenuation threshold of 130 Hounsfield units (HU) was used for the detection of calcium in contiguous voxels of 1 sq mm in area to be counted as individual lesions. Bolus tracking in the ascending aorta with a threshold of 180 HU was performed. Immediately afterwards, ECG synchronized cardiac CT was then performed from the cardiac base to apex using retrospective gating with ECG tube current modulation. A total of 85 mL of Isovue 370 mg/mL contrast medium was administered at 5 mL/sec followed by a saline flush using a biphasic injection protocol. A tube voltage of 120 KVp was used. The patient received the following medications prior to the cardiac CT. 150 mg of oral metoprolol 5 mg of intravenous metoprolol 15 mg of oral ivabradine 0.8 mg of sublingual nitroglycerin The average heart rate at the time of acquisition was 62 bpm and regular. Image Reconstruction Transaxial images were reconstructed at 0.67 mm slide thickness. Data was reviewed interactively on an advanced workstation capable of 2 and 3-dimensional displays in all conventional reconstruction formats, including multiplanar reformations, maximum intensity projections, curved multiplanar reformations, and volume rendered reconstructions. When applicable, selected routine images describing the relevant coronary anatomy and pathology were saved and sent to PACS. Complications None Technical Quality Overall image quality was good. Coronary artery opacification was adequate. Total DLP (Dose-Length Product) is 1492.8 mGy-cm. The reported value represents the total of one or more individual components during the CT acquisition of this date and at this time, and as such, the same value may appear in more than one CT report depending on the interpreting/reporting physicians. COMPARISON None FINDINGS CT Coronary Calcium Scoring LMA (Left Main Artery) = 30 LAD (Left Anterior Descending) = 140 LCX (Left Coronary Circumflex) = 12 RCA (Right Coronary Artery) = 177 Total Calcium Score = 359 using the AJ-130 method. The observed calcium score of 359 is at 81st percentile for subjects of the same age, sex, and race/ethnicity. The interpretation of the calcium heart score is based on the following continuum*: 0 = no calcified plaque detected (risk of coronary artery disease is very low ??? less than 5%) 1-10 = calcium detected in extremely minimal levels (risk of coronary diseases is still low ??? less than 10%) 11-100 = mild levels of plaque detected with certainty (mild or minimal narrowing of heart arteries is likely) 101-400 = definite,at least moderate levels of plaque detected (relatively high risk of a heart attack within 3-5 years) >401-999 = extensive levels of plaque detected (high risk of heart attack, high levels of vascular disease are present, high likelihood of at least one significant coronary narrowing) *The calcium heart score quantifies the burden of coronary calcification/plaque in the coronary arteries. The calcium heart score is not able to evaluate the presence or burden of non-calcified (i.e. soft) plaque. There is no identifiable calcification in the aortic valve, mitral annulus or mitral valve, pericardium, or myocardium. Coronary CT Angiography The coronary arterial system is right dominant. Quantitative Stenosis Grading: Left Main (LM): The left main originates normally from the left sinus of Valsalva. The LM trifurcates into the left anterior descending artery, ramus intermedius, and left circumflex artery. There is calcified plaque in the distal LM segment, with < 25% luminal stenosis. Left Anterior Descending (LAD) and Diagonal Branches: The LAD gives off 2 diagonal branch(es). There is mixed calcified/noncalcified plaque noted in the proximal LAD segment, with 25-49% luminal stenosis. There is no evidence of LAD-myocardial bridge. Ramus-intermedius (RI): The RI is patent. Left Circumflex (LCX) and Obtuse Marginals (OM): The LCX gives off 2 Obtuse Marginal (OM) branch(es). There is mixed calcified/noncalcified plaque in the proximal LCx segment with up to 25-49% luminal stenosis. Right Coronary Artery (RCA): The RCA originates normally from the right sinus of Valsalva. The RCA gives off a posterior descending artery (PDA) and posterolateral (PL) branches. There is mixed calcified/noncalcified plaque in the proximal RCA segment with up to 25-49% luminal stenosis. Non-Coronary Cardiac Findings: Analysis of the left ventricular (LV) structure and function was performed after 3-D reconstruction of the LV from axial images, with user-corrected automatic contouring for assessment of LV volumes and user-defined reconstruction from oblique planes for measurement of 3-D cardiac structure and function. -The left ventricle systolic function is normal. -There is no left atrial appendage filling defect. Two right pulmonary veins and two left pulmonary veins drain normally into the left atrium. -No pericardial thickening or calcification. -Central and branch pulmonary arteries in the [id number] are unremarkable. -Thoracic aorta within the visualized thoracic aortic-branches in the [id number] is unremarkable. Extracardiac Structures No significant extra-cardiac findings. Note, however, that this study is focused on the cardiac findings. IMPRESSION -Presence of coronary calcification with an Agatston score = 359 using the AJ-130 method. -The observed calcium score of 359 is at 81st percentile for subjects of the same age, sex, and race/ethnicity. -Mild, nonobstructive atherosclerotic coronary disease in multiple vessels segments, with no evidence of significant flow-limiting atherosclerosis of the coronary arteries. -CAD-RADS 2. Management recommendations per ACC/AHA guidelines*, as clinically appropriate. *Recommendations: CAD RADS 0: Reassurance. Consider non-atherosclerotic causes of chest pain. CAD RADS 1: Consider non-atherosclerotic causes of chest pain. Consider preventive therapy and risk factor modification. CAD RADS 2: Consider non-atherosclerotic causes of chest pain. Consider preventive therapy and risk factor modification, particularly for patients with nonobstructive plaque in multiple segments. CAD RADS 3: Consider further functional testing. Consider symptom-guided anti-ischemic and preventive pharmacotherapy as well as risk factor modification per published guideline statements. CAD RADS 4A: Consider further functional testing or invasive coronary angiography with revascularization per published guideline statements. Consider symptom-guided anti-ischemic and preventive pharmacotherapy as well as risk factor modification per published guideline statements. CAD RADS 4B: Invasive coronary angiography recommended with revascularization per published guideline statements. Consider symptom-guided anti-ischemic and preventive pharmacotherapy as well as risk factor modification per published guideline statements. CAD RADS 5: Consider invasive angiography and/or viability assessment with revascularization per published guideline statements. Consider symptom-guided anti-ischemic and preventive pharmacotherapy as well as risk factor modification per published guideline statements. CRITICAL RESULT None COMMUNICATION Per this written report The coronary and cardiac findings of this CCTA were reviewed, reported, and signed by Oz Mckay MD ([employer] [place]) Conclusion Electronically signed by : Enma Mckay MD 09/26/2024 15:41:05
[2024-09-26 07:30] VITALS: BMI 26.1
[2024-09-26 08:00] LABS: POC Glucose,Bedside 148 (70-110)
[2024-09-26 08:19] VITALS: BP 148/97; PULSE 60; O2SAT 96
[2024-09-26] MEDS: NITROGLYCERIN 0.4MG SL TABLET SL (08:20)
[2024-09-26 08:22] VITALS: BP 106/70; PULSE 68; O2SAT 97
[2024-09-26 08:25] VITALS: BP 106/69; PULSE 62; O2SAT 96
[2024-09-26] MEDS: METOPROLOL TARTRATE 5MG/5ML VIAL 5 MG IV (08:25)
[2024-09-26 08:28] VITALS: BP 111/65; PULSE 57; O2SAT 96
[2024-09-26] MEDS: IOPAMIDOL-370 (76%);100ML BOTTLE 85 ML IV (08:34)
[2024-09-26] MEDS: SODIUM CHLORIDE 0.9% 10ML SYR (RAD ONLY) 10 ML IV (08:34)
[2024-09-26] MEDS: 0.9 % SODIUM CHLORIDE 50 ML VIAL 40 ML IV (08:34)
== END 2024-09-26 08:50 | disposition home or self-care (01) ==
PROVIDERS: PCP Family Medicine; Visit Provider Internal Medicine
DX: R07.89 Other chest pain (principal); R94.39 Abnormal result of other cardiovascular function study; Z72.0 Tobacco use
CPT/HCPCS: 75574; 82962; Q9967

== ENCOUNTER 2024-10-10 07:59 | Emergency (ER) | payer MEDICAID, SELFPAY ==
[2024-10-10 08:05] VITALS: BP 146/90; PULSE 76; RESP 19; TEMP 37.1; O2SAT 98; BMI 27.0
--- NOTE | 2024-10-10 08:16 | EXP.UTC ---
Discharge Plan Disposition Patient Disposition: Home, Self-Care Condition: Good Prescriptions Prescriptions: New amoxicillin 500 mg capsule 500 mg PO TID 7 Days Qty: 21 0RF ciprofloxacin-dexamethasone 0.3-0.1 % drops,suspension 4 drp otic (ear) Q12H 7 Days Qty: 7.5 0RF Rx Instructions: in left ear as directed No Action (DME) blood-glucose meter [Advanced Glucose Meter] [facility] [place] See Rx Instructions .ROUTE .MEDSUPPLY Qty: 1 0RF Rx Instructions: USE TO TEST GLUCOSE BID (DME) Advanced Gluc Meter Test Strip Strip See Rx Instructions .ROUTE .MEDSUPPLY Qty: 10 0RF Rx Instructions: USE TO TEST GLUCOSE BID metformin 500 mg tablet 500 mg PO BID Patient Comments: TAKE 1 TABLET BY MOUTH TWICE DAILY amlodipine 5 mg tablet 5 mg PO DAILY Patient Comments: TAKE 1 TABLET BY MOUTH DAILY potassium chloride 20 mEq tablet,ER particles/crystals 20 meq PO DAILY Patient Comments: TAKE 1 TABLET BY MOUTH DAILY simvastatin 20 mg tablet 20 mg PO PM Patient Comments: TAKE 1 TABLET BY MOUTH EVERY EVENING hydrochlorothiazide 25 mg tablet 25 mg PO DAILY Patient Comments: TAKE 1 TABLET BY MOUTH DAILY ergocalciferol (vitamin D2) 1,250 mcg (50,000 unit) capsule 1,250 mcg PO WEEKLY Patient Comments: TAKE 1 CAPSULE BY MOUTH ONCE WEEKLY ON SAME DAY EACH WEEK. MAKE APPOINMENT FOR FUTURE REFILLS losartan 100 mg tablet 100 mg PO DAILY Patient Comments: TAKE 1 TABLET BY MOUTH DAILY cholecalciferol (vitamin D3) 25 mcg (1,000 unit) capsule 25 mcg PO DAILY Patient Comments: TAKE 1 CAPSULE BY MOUTH ONCE DAILY (DME) lancets [OneTouch Delica Plus Lancet] 33 gauge [facility] [place]ISCELLANEOUS Patient Comments: USE TO TEST BLOOD GLUCOSE TWICE A DAY Referrals Follow up/Referrals: Alcides Bales MD [Primary Care Provider] - See instructions Activity Restrictions/Add. Instructions Additional Instructions/Restrictions: Take oral antibiotics as prescribed Use ear drops as prescribed Over the counter motrin and/or Tylenol for pain and fever Follow up with your Family Doctor if needed Clinical Impressions Clinical Impression: Otitis media, Otitis externa Instructions Patient Instructions: Ciprofloxacin and Dexamethasone Otic, Amoxicillin Print Language Print Language: Estonian Discharge ED Provider: Zabrina Mayer [facility] HPI General Stated complaint: L ear pain Mode of Arrival: Ambulatory Source of Information: Patient Limitations: No Limitations Time Seen by Provider: 10/10/24 08:16 Description of Symptoms (Recalled from Triage Doc. by RN): PATIENT C/O PAIN AND SWELLING TO LEFT EAR HEENT Symptoms (Recalled from RN notes): Yes Resp Symptoms (Recalled from RN notes): No Skin Symptoms (Recalled from RN notes): No MS Symptoms (Recalled from RN notes): No Functional Status (Recalled from RN notes): WNL History of Present Illness Provider Complaint: Patient states that he has been having pain and feeling of fullness in his left ear and feels like it is swollen States today it was still bothering him so he came in to get it checked Related Data Home Medications ?Medication ?Instructions ?Recorded ?Confirmed amlodipine 5 mg tablet 5 mg PO DAILY 10/10/24 10/10/24 cholecalciferol (vitamin D3) 25 25 mcg PO DAILY 10/10/24 10/10/24 mcg (1,000 unit) capsule ergocalciferol (vitamin D2) 1,250 1,250 mcg PO WEEKLY 10/10/24 10/10/24 mcg (50,000 unit) capsule hydrochlorothiazide 25 mg tablet 25 mg PO DAILY 10/10/24 10/10/24 lancets 33 gauge (OneTouch Delica 10/10/24 10/10/24 Plus Lancet) losartan 100 mg tablet 100 mg PO DAILY 10/10/24 10/10/24 metformin 500 mg tablet 500 mg PO BID 10/10/24 10/10/24 potassium chloride 20 mEq 20 meq PO DAILY 10/10/24 10/10/24 tablet,extended release(part/cryst) simvastatin 20 mg tablet 20 mg PO PM 10/10/24 10/10/24 Previous Rx's ?Medication ?Instructions ?Recorded blood sugar diagnostic (Advanced #10 ea 11/03/23 Glucose Meter Test Strips) blood-glucose meter (Advanced #1 ea 11/03/23 Glucose Meter) amoxicillin 500 mg capsule 500 mg PO TID 7 days #21 caps 10/10/24 ciprofloxacin 0.3 %-dexamethasone 4 drp otic (ear) Q12H 7 days #7.5 10/10/24 0.1 % ear drops,suspension mL Allergies Allergy/AdvReac Type Severity Reaction Status Date / Time lisinopril AdvReac Mild cough Verified 09/26/24 07:58 Worker's Comp Is this a Worker's Comp case?: No [facility] Disclaimer: The information contained in this section may have been updated after the patient was seen, as this information can be updated by other users. Medical History Chest pain Vaccine counseling Pneumonia no current persistent symptoms Screening for colon cancer New onset type 2 diabetes mellitus Pancreatitis Hypokalemia Diabetes Hyperlipidemia BPH (benign prostatic hyperplasia) Skin cancer Hypertension Surgical History History of colonoscopy History of eye surgery Family History (Updated 09/26/24 @ 07:55 by Anusha Woodward RN) Other No significant family history Social History Smoking Status: Current some day smoker tobacco type: cigarettes packs per day: 1 alcohol intake: current alcohol intake frequency: a few times a week substance use type: denies use current occupational status: employed Travel in the last 8 weeks: None household members: foster family and none housing: house ROS Obtained: Yes All systems reviewed & no additional complaints except as documented and Yes Systems reviewed as appropriate & no additional complaints except as documented Constitutional Constitutional: Reports system reviewed and no additional complaints, except as documented and Reports as per HPI ENT Ears, Nose, Mouth, and Throat: Reports system reviewed and no additional complaints, except as documented, Reports as per HPI and Reports otalgia Cardiovascular Cardiovascular: Reports system reviewed and no additional complaints, except as documented and Reports as per HPI Respiratory Respiratory: Reports system reviewed and no additional complaints, except as documented and Reports as per HPI Gastrointestinal Gastrointestingal: Reports system reviewed and no additional complaints, except as documented and as per HPI Genitourinary Male Genitourinary: Reports system reviewed and no additional complaints, except as documented and Reports as per HPI Musculoskeletal Musculoskeletal: Reports system reviewed and no additional complaints, except as documented and Reports as per HPI Integumentary/Breasts Skin/Breast: Reports system reviewed and no additional complaints, except as documented and Reports as per HPI Physical Exam General General appearance: alert and in no apparent distress ENT ENT exam: Present mucous membranes moist Expanded ENT Exam External ear exam: Present pain with movement (left) and external tenderness (left) TM/Canal exam: Left TM: erythema Respiratory Respiratory exam: Present normal lung sounds bilaterally; Absent respiratory distress or wheezes Cardiovascular Cardiovascular exam: Present regular rate, normal rhythm and normal heart sounds Abdominal Exam Abdominal exam: Present soft and normal bowel sounds; Absent distention or tenderness Neurological Exam Neurological exam: Present alert, oriented X3 and normal gait Medical Decision Making Medical Records Screening: Per USPSTF and CDC recommendations, given the prevalence of disease in our region, it is our hospital?s policy to screen for HIV and viral Hepatitis for all patients aged 18 and over and those with ongoing risk factors. Ashwin Inquiry Pt receiving controlled substance: No Ashwin was queried for this patient: No Vital Signs: 10/10/24 08:05 Temperature 98.7 F Temperature Source Oral Pulse Rate [Left Brachial] 76 Respiratory Rate 19 Blood Pressure [Left Arm] 146/90 H Blood Pressure Mean [Left Arm] 108 Blood Pressure Source [Left Arm] Automatic Cuff Blood Pressure Position [Left Arm] Sitting 02 Sat by Pulse Oximetry 98 Oxygen Delivery Method Room Air
[2024-10-10 08:25] VITALS: BP 146/90; PULSE 76; RESP 19; TEMP 37.1; O2SAT 98
== END 2024-10-10 08:27 | disposition home or self-care (01) ==
PROVIDERS: Emergency Provider Nurse Practitioner; PCP Family Medicine
DX: H66.92 Otitis media, unspecified, left ear (principal); H60.92 Unspecified otitis externa, left ear; H92.02 Otalgia, left ear; Z72.0 Tobacco use
CPT/HCPCS: 99212; G0381

== ENCOUNTER 2024-11-28 06:25 | Day surgery (SDC) | payer MEDICAID, SELFPAY ==
[2024-11-23 12:51] VITALS: BMI 26.7
[2024-11-28 06:59] VITALS: BP 125/78; PULSE 64; RESP 17; TEMP 36.1; O2SAT 97
[2024-11-28] MEDS: LACTATED RINGERS 1000ML 1,000 ML 50 ML IV (07:00)
[2024-11-28 07:16] LABS: POC Glucose,Bedside 167 (70-110)
--- NOTE | 2024-11-28 08:13 | EXP.HP ---
History of Present Illness *Admission Date: 11/28/24 *Reason for visit:: Surveillance/screening colonoscopy-history of colon polyps *History of present illness: Mr. Santillan is a 64-year-old gentleman who is here for surveillance/screening colonoscopy. His last colonoscopy was 10 years ago and he had colonic polyps removed in [place]. The examination is deemed medically necessary for surveillance colonoscopy. The patient has been seen, interviewed and examined prior to the procedure by both myself and the anesthesia provider. [facility] Disclaimer: The information contained in this section may have been updated after the patient was seen, as this information can be updated by other users. Medical History Chest pain Vaccine counseling Pneumonia no current persistent symptoms Screening for colon cancer New onset type 2 diabetes mellitus Pancreatitis Hypokalemia Diabetes Hyperlipidemia BPH (benign prostatic hyperplasia) Skin cancer Hypertension Surgical History History of colonoscopy History of eye surgery Family History Other No significant family history Social History (Updated 11/28/24 @ 06:53 by Anusha Woodward RN) Smoking Status: Current some day smoker tobacco type: cigarettes packs per day: 1 alcohol intake: current alcohol intake frequency: a few times a week substance use type: denies use current occupational status: employed Travel in the last 8 weeks: None household members: foster family and none housing: house caffeine: Yes Have you lived/traveled outside [place] in past 30 days?: No Contact w/someone who lives/traveled outside US past 30 days?: No Exposure to someone with infectious disease in past 14 days?: No Do you have a fever (greater than 100.4 F or 38 C)?: No Have you tested positive for COVID-19: No Exposed to someone with COVID-19 in past 14 days?: No Do you have a sore throat?: No Do you have a cough?: No Do you have any weakness?: No Are you experiencing any nausea/vomitting?: No Do you have any diarrhea?: No Are you experiencing any unusual bleeding?: No Do you have any muscle aches/pain?: No Do you have any abdominal pain?: No Are you experiencing loss of taste or smell?: No Other Medical History Have you received the Flu Vaccine for this season: No Have you received the Pneumonia Vaccine: No Review of Systems Review of Systems Review of systems (narrative): Negative *Cardiovascular Comments: Negative *Gastrointestinal Comments: Negative *Genitourinary Comments: Negative *Musculoskeletal Comments: Negative *Neurologic Comments: Negative Meds Home Medications and Allergies Home Medications ?Medication ?Instructions ?Recorded ?Confirmed ?Type blood sugar diagnostic (Advanced #10 ea 11/03/23 10/10/24 Rx Glucose Meter Test Strips) blood-glucose meter (Advanced #1 ea 11/03/23 10/10/24 Rx Glucose Meter) amlodipine 5 mg tablet 5 mg PO DAILY 10/10/24 11/28/24 History aspirin 81 mg tablet,delayed 81 mg PO DAILY #30 tabs 10/10/24 11/28/24 Rx release (Adult Low Dose Aspirin) cholecalciferol (vitamin D3) 25 25 mcg PO DAILY 10/10/24 11/28/24 History mcg (1,000 unit) capsule ergocalciferol (vitamin D2) 1,250 1,250 mcg PO WEEKLY 10/10/24 11/28/24 History mcg (50,000 unit) capsule hydrochlorothiazide 25 mg tablet 25 mg PO DAILY 10/10/24 11/28/24 History lancets 33 gauge (OneTouch Delica 10/10/24 10/10/24 History Plus Lancet) losartan 100 mg tablet 100 mg PO DAILY 10/10/24 11/28/24 History metformin 500 mg tablet 500 mg PO BID 10/10/24 11/28/24 History potassium chloride 20 mEq 20 meq PO DAILY 10/10/24 11/28/24 History tablet,extended release(part/cryst) simvastatin 20 mg tablet 20 mg PO PM 10/10/24 11/28/24 History New Prescriptions to Start Prescriptions: Allergies Allergy/AdvReac Type Severity Reaction Status Date / Time lisinopril AdvReac Mild cough Verified 11/28/24 06:54 Exam Data for Last 24 hours Vital signs and Labs for Last 24 Hours: Temp Pulse Resp BP Pulse Ox O2 Del Method 97 F L 64 17 125/78 97 Room Air 11/28/24 06:59 11/28/24 06:59 11/28/24 06:59 11/28/24 06:59 11/28/24 06:59 11/28/24 06:59 Laboratory Results - last 24 hr 11/28/24 07:07: POC Glucose 167 H *Routine HEENT Exam Head: Present normocephalic Eye: Present EOMI and PERRL ENT: Present mucous membranes moist *Routine Neck Exam Neck: Present supple *Routine Respiratory Exam Respiratory: Present CTA bilaterally *Routine Cardiovascular Exam Cardiovascular: Present RRR *Routine Abdominal Exam Abdominal: Present soft and normoactive bowel sounds; Absent tenderness *Routine Rectal Exam Rectal:: deferred *Routine Genitalia Exam Genitalia:: deferred *Routine Extremities Exam Extremities: Absent cyanosis, clubbing or edema *Routine Skin Exam Skin: Present warm; Absent rash *Routine Neurological Exam Neurological: Present alert and oriented X3 Assessment and Plan *Assessment and plan (1) Personal history of colon polyps, unspecified: Status: Acute Category: Medical Code(s): Z86.0100 - Personal history of colon polyps, unspecified (2) Encounter for screening colonoscopy: Status: Acute Category: Medical Code(s): Z12.11 - Encounter for screening for malignant neoplasm of colon Plan A/P: 1. Surveillance/screening colonoscopy with last colonoscopy 10 years ago and polyps removed at that time is the preprocedural diagnosis. The patient will be anesthetized/sedated using MAC sedation. The patient has been seen and examined. Cardiac and lung assessment prior to the examination is stable. Proceed with planned surveillance/screening colonoscopy
[2024-11-28 08:16] VITALS: O2SAT 95
--- NOTE | 2024-11-28 08:19 | HMH.PROCNOTE ---
[facility] Procedure Note Date: 11/28/24 Time: 08:32 Procedure Note:: Colonoscopy Procedure Report: Colonoscopy with cold snare polypectomy Endoscopist: Humphrey Hampton II, MD Referring physician: Alcides Bales MD Date of Procedure: November 28, 2024 Equipment: Olympus 190 variable stiffness pediatric colonoscope Sedation: MAC sedation Indication: Mr. Santillan is a 64-year-old gentleman who is here for follow-up screening/surveillance colonoscopy. His last colonoscopy was about 10 years ago in [place] and the patient believes that he had some polyps removed at that time. The patient reports no abdominal pain, weight loss, change in his bowel habits or rectal bleeding. He reports no family history of colon cancer. The patient recently had alcohol related acute pancreatitis in August and went to the emergency department. His cardiac evaluation was unremarkable. His CAT scan showed some focal acute pancreatitis in the tail of the pancreas. His right upper quadrant abdominal ultrasound was unremarkable. Procedure: Prior to the procedure, a history and physical exam was performed, and patient's medications and allergies were reviewed. The risks, benefits and alternatives of the sedation and procedure were discussed with the patient. All questions were answered and informed consent was obtained. The patient was brought to the procedure room. Patient identification and proposed procedure were verified by the physician and the nurse. The patient was placed in a left lateral decubitus position and the scope was passed under direct vision. Throughout the procedure, the patient's blood pressure, pulse, and oxygen saturations were monitored continuously. The colonoscopy was accomplished without difficulty. The patient tolerated the procedure well. Findings: On digital rectal examination there was normal rectal tone. There were no external hemorrhoids. The prostate was 2-3+, smooth, soft, symmetric without nodules. The colonoscope was introduced through the anal canal to the rectum and advanced to the cecum. The ileocecal valve and appendiceal orifice were identified. The scope was advanced a short distance into the ileum which appeared grossly normal. The scope was then withdrawn into the colon. The cecum, ascending and transverse colon and mucosa were grossly normal. There was a single flat/sessile 5 to 6 mm polyp in the transverse colon that was removed via cold snare polypectomy. There were scattered diverticuli throughout the descending and sigmoid colon (LEFT colon). The rectum itself was normal. Upon retroflexion within the rectum there were grade 1-2 internal hemorrhoids. The preparation was excellent throughout with [place] Preparation Score of 9. The cecal time was 12 minutes. Impression: 1. Transverse colon polyp (5 to 6 mm) 2. Left-sided diverticulosis 3. Grade 1-2 internal hemorrhoids Plan: I will follow-up the polyp histology and recommend repeat surveillance colonoscopy again in 7 years if the polyp is adenomatous. I would encourage psyllium bulking fiber supplementation on a long-term daily maintenance basis.
[2024-11-28 08:34] VITALS: BP 88/55; PULSE 64; RESP 18; TEMP 36.1; O2SAT 94
--- NOTE | 2024-11-28 08:38 | EXP.ANES.CKL ---
[facility] Disclaimer: The information contained in this section may have been updated after the patient was seen, as this information can be updated by other users. Medical History Chest pain Vaccine counseling Pneumonia no current persistent symptoms Screening for colon cancer New onset type 2 diabetes mellitus Pancreatitis Hypokalemia Diabetes Hyperlipidemia BPH (benign prostatic hyperplasia) Skin cancer Hypertension Surgical History History of colonoscopy History of eye surgery Family History Other No significant family history Social History (Updated 11/28/24 @ 06:53 by Anusha Woodward RN) Smoking Status: Current some day smoker tobacco type: cigarettes packs per day: 1 alcohol intake: current alcohol intake frequency: a few times a week substance use type: denies use current occupational status: employed Travel in the last 8 weeks: None household members: foster family and none housing: house caffeine: Yes Have you lived/traveled outside [place] in past 30 days?: No Contact w/someone who lives/traveled outside US past 30 days?: No Exposure to someone with infectious disease in past 14 days?: No Do you have a fever (greater than 100.4 F or 38 C)?: No Have you tested positive for COVID-19: No Exposed to someone with COVID-19 in past 14 days?: No Do you have a sore throat?: No Do you have a cough?: No Do you have any weakness?: No Are you experiencing any nausea/vomitting?: No Do you have any diarrhea?: No Are you experiencing any unusual bleeding?: No Do you have any muscle aches/pain?: No Do you have any abdominal pain?: No Are you experiencing loss of taste or smell?: No [facility] Anesthesia Checklist Patient Identification Patient Identification: Verbal (Name & ) Structural Data Admitted From: Home Planned Operative Procedure/s: colonoscopy Consent for Planned Operative Procedure(s) Verified: Yes Additional verifications Anesthesia Reactions: No Hx Blood Transfusions: No Blood Transfusion Reaction: No Airway Assessment Mallampati Score:: Class III C-Spine Mobility Assessed: Yes TMJ Mobility Assessed: Yes Dentition: Poor Dentition Neurological Assessment Level of Consciousness: Awake, Alert and Appropriate Anesthesia Plan Anesthesia Risk discussed: Yes Anesthesia Plan: Verified ASA Class: III Anesthesia Type: MAC
[2024-11-28 08:44] VITALS: BP 104/41; PULSE 56; RESP 20; O2SAT 96
[2024-11-28 08:54] VITALS: BP 109/80; PULSE 57; RESP 20; O2SAT 97
[2024-11-28 09:32] VITALS: BP 116/76; PULSE 53; RESP 18; O2SAT 98
== END 2024-11-28 09:32 | disposition home or self-care (01) ==
PROVIDERS: PCP Family Medicine; Visit Provider Internal Medicine Gastroenterology
PROC: (CPT 45385; principal; 2024-11-28 08:00)
DX: K63.5 Polyp of colon (principal); K57.30 Diverticulosis of large intestine without perforation or abscess without bleeding; K64.8 Other hemorrhoids; Z86.0100 Personal history of colon polyps, unspecified; Z12.11 Encounter for screening for malignant neoplasm of colon; E11.9 Type 2 diabetes mellitus without complications; Z79.84 Long term (current) use of oral hypoglycemic drugs
CPT/HCPCS: 45385; 82962; J7120

== ENCOUNTER 2025-03-28 10:03 | Outpatient (CLI) | payer MEDICAID, SELFPAY ==
[2025-03-28 18:55] LABS: Basophils # 0.1 K/mm3 (0-0.2); Basophils % 1.2 % (0.1-2.0); Eosinophils # 0.5 Kmm3 (0.0-0.4); Eosinophils % 7.7 % (0.1-12.0); Hematocrit 44.5 % (42.0-52.0); Hemoglobin 15.4 g/dL (14.1-18.0); Immature Granulocytes # 0.02 10^3uL; Immature Granulocytes % 0.3 %; Lymphocytes # 2.3 K/mm3 (0.7-4.5); Lymphocytes % 33.7 % (10-50); Mean Corpuscular HGB Conc 34.6 g/dL (31.8-35.4); Mean Corpuscular Hemoglobin 32.2 pg (27.0-31.2); Mean Corpuscular Volume 93.1 fl (80-94); Mean Platelet Volume 9.9 fl (7.4-10.4); Monocytes # 0.5 K/mm3 (0.1-1.0); Monocytes % 7.4 % (1.7-9.3); Neutrophils # 3.4 K/mm3 (1.8-7.8); Neutrophils % 49.7 % (37.0-80.0); Nucleated Red Blood Cells # 0 10^3/uL; Nucleated Red Blood Cells % 0 %; Platelet Count 240 K/mm3 (142-424); Red Blood Count 4.78 M/mm3 (4.60-6.20); Red Cell Distribution Width 12.5 % (11.5-17.5); Red Cell Distribution Width-SD 42.7 fL; White Blood Count 6.7 K/mm3 (4.8-10.8)
[2025-03-28 19:39] LABS: Chol/HDL Ratio 3.9 (1-3.5); Cholesterol 112 mg/dl (140-200); HDL Cholesterol 29 mg/dl (40-60); Triglycerides 234 mg/dl (30-150); VLDL Cholesterol 47 mg/dL (0-40)
[2025-03-28 19:56] LABS: Direct LDL Cholesterol 63.79 mg/dL (100-129)
[2025-03-28 20:06] LABS: 25-OH Vitamin D, Total 60.2 ng/mL (30-100)
[2025-03-28 20:11] LABS: Prostate Specific Ag Screen 5.7 ng/ml (0.0-4.0)
[2025-03-28 20:49] LABS: Hemoglobin A1C 6.7 % (4.0-6.0)
--- OUTSIDE RECORDS SUMMARY | 2025-03-29 13:36 | XMS_ITS | Data Portability ---
Author Organization [facility], [facility] [place] [facility] Address [address] [place] [address] Care Team Providers Care Graphics Specialist Name Role Phone DEB DURAN Urologist Assessment Encounter Date Assessment Date Assessment LastModified by Organization Details LastModified Time 11/20/2024 11/20/2024 Follow up in 3-4 months [email or web address] Not available 11/20/2024 09:14:27 12/10/2024 12/10/2024 Follow up in pend path [email or web address] Not available 12/10/2024 10:25:01 12/24/2024 12/24/2024 Follow up 3-4 months Not available 12/24/2024 10:26:12 Plan of Treatment Reminders Order Date Submit Date Provider Last Modified By Organization Details Last Modified Time Details Appointments [facility] 2024 11:00A Gonzales VALERIO MD Not available Not available Not available [facility] VISIT 2024 08:45A Gonzales SINGH MD Not available Not available Not available DERMATOLO GY VISIT 2025 09:30A Gonzales SINGH MD Not available Not available Not available Lab surgical pathology study - R/O Squamous Cell Carcinoma 2024 025 [facility], [address] [place] [address], [phone], 02/18/2025 11:47:30 surgical pathology study 2024 025 [facility], [address] [place] [address], [phone], 12/17/2024 09:50:58 Referral None recorded. Procedures None recorded. Surgeries None recorded. Imaging None recorded. Medication Orders None recorded. Patient TargetsNo targets recorded. Patient Instructions Encounter Date Encounter Id Patient Instructions Last Modified By Organization Details Last Modified Time 11/20/2024 [id number] Education: We discussed the potential diagnostic options, options for further evaluation and treatments, and the risks and benefits of each. [email or web address] Not available 11/20/2024 09:04:36 12/10/2024 [id number] Education: We discussed the potential diagnostic options, options for further evaluation and treatments, and the risks and benefits of each. [email or web address] Not available 12/10/2024 10:06:50 12/24/2024 [id number] Education: We discussed the potential diagnostic options, options for further evaluation and treatments, and the risks and benefits of each. [email or web address] Not available 12/24/2024 10:17:18 Reason for Referral None Reported. Results Created Date Observation Date Name Description Value Unit Range Abnormal Flag Note LastModifiedBy Organization Detail LastModifiedTime 11/13/19 25 11/13/2024 [facility] surgical SEE BELOW abnormal Surgi linsey Patho logy Repor t NAME: RAJEEV RICHEY PATH: [id number] DATE of : 10/18 5 Copy to: Diagn osis: A) Left upper preau ricul ar: Squam ous cell carci noma, moder ately diffe renti ated; incom plete ly excis ed. Note: No perin eural invas ion or lymph ovasc ular invas ion is seen. B) Left upper neck: Squam ous cell carci noma, well diffe renti ated; incom plete ly excis ed. C) Right dorsa l radia l hand: Squam ous cell carci noma, well diffe renti ated; incom plete ly excis ed. SOURC E OF SPECI MEN: SKIN BIOPS Y, LEFT UPPER PREAU RICUL AR SKIN BIOPS Y, LEFT UPPER NECK SKIN BIOPS Y, RIGHT DORSA L RADIA L HAND CLINI [facility] INFOR TEMITOPE N: D48.5 SPECI MEN COLLE CTION NOTES : R/O CA Gross Descr iptio n: A) Patie nt name and date of verif ied. Recei brock in forma fabio label ed with the patie nt's name and desig nated left upper preau ricul ar is a shave biops y of skin (0.8 x 0.7 x 0.1 cm). The epide rmal surfa ce is mckeon and rough ened. The aldo n is inked blue. The speci men is trise cted and entir daysi submi tted in one casse tte label ed A1. B) Patie nt name and date of verif ied. Recei brock in forma fabio label ed with the patie nt's name and desig nated left upper neck is a shave biops y of skin (1.3 x 1.2 x 0.3 cm). The epide rmal surfa ce is white , nodul ar and rough ened. The aldo n is inked blue. The speci men is quadr isect ed and entir daysi submi tted in one casse tte label ed B1. C) Patie nt name and date of verif ied. Recei brock in forma fabio label ed with the patie nt's name and desig nated righ t dorsa l radia l hand is a shave biops y of skin (1.0 x 0.8 x 0.2 cm). The epide rmal surfa ce is white , nodul ar and rough ened. The aldo n is inked blue. The speci men is trise cted and entir daysi submi tted in one casse tte label ed C1. RADHAB 11/14 10:30 AM Micro scopi c Descr iptio n: A micro scopi c exami natio n has been perfo rmed and the resul t(s) are as noted above . SCOOTER TOPETE M.D. Emily zamora Out Date: 11/15 10:19 Page 1 of 1 Not Available [facility] [address] [place] [address], [place], [address], 11/15/2024 10:20:02 12/10/1912/10/2024 SURGI LINSEY surgical SEE BELOW abnormal Surgi linsey Patho logy Repor t NAME: RAJEEV RICHEY PATH: [id number] DATE of : 10/18 5 Copy to: Diagn osis: A) Left dorsa l 1st hand web: Proli ferat ing verru cous kerat osis with atypi a. See micro scopi c descr iptio n. B) Right later al cheek : Squam ous cell carci noma, well diffe renti ated; incom plete ly excis ed. SOURC E OF SPECI MEN: SKIN BIOPS Y, LEFT DORSA L 1st HAND WEB SKIN BIOPS Y, RIGHT LATER AL CHEEK CLINI LINSE[facility] INFOR MATIO N: D48.5 SPECI MEN COLLE CTION NOTES : R/O SCC Gross Descr iptio n: A) Francis nt name and date of verif ied. Recei brock in forma fabio label ed with the juliannee nt's name and desig nated left dorsa l 1st hand web is a shave biops y of skin (0.8 x 0.6 x 0.2 cm). The epide rmal surfa ce is white -mckeon, rough ened and nodul ar. The aldo n is inked blue. The speci men is trise cted and entir daysi submi tted in one casse tte label ed A1. B) Francis nt name and date of verif ied. Recei brock in forma fabio label ed with the juliannee nt's name and desig nated righ t later al cheek is a shave biops y of skin (1.0 x 0.8 x 0.2 cm). The epide rmal surfa ce is white -mckeon, scaly and nodul ar. The aldo n is inked blue. The speci men is trise cted and entir daysi submi tted in one casse tte label ed B1. MT 12/10 03:49 PM Micro scopi c Descr iptio n: A micro scopi c exami natio n has been perfo rmed and the resul t(s) are as noted above . A) Secti ons demon strat e sun damag ed skin with an endop hytic , cup-s haped proli ferat ion of epide rmis. There is evide nce of verru cous diffe renti ation with promi nent hyper granu losis and corbin ct hyper parak erato sis. There is cytoa rchit ectur al atypi a of the proli ferat ion in the deepe r aspec ts which canno t be furth er evalu ated. The clini linsey hailey rn for squam ous carci noma is noted . If there is lesio nal persi stenc e and suspi cion for an under lying more signi fican t lesio n remai ns high, addit ional deepe r biops y sampl ing could be consi dered . SCOOTER TOPETE MD Emily d Out Date: 12/17 09:50 Page 1 of 1 Not Available [facility] [address] [place] [address], [place], [address], 12/17/2024 09:50:58 02/15/2002/14/2025 SURGI [facility]SEY surgical SEE BELOW abnormal [place] topat holog y Repor t NAME: RAJEEV RICHEY PATH: [id number] PROCE DURE DATE: 02/14 SIGNO UT DATE: 02/18 Copy to: Diagn osis: Left Posta uricu lar - BASAL CELL CARCI NOMA Comme nt: The deep aldo n is invol brock with tumor . AJCC: T1, Nx, Mx SOURC E OF SPECI MEN: SKIN, L POSTA URICU LAR CLINI LINSEY INFOR MATIO N: R/O: SCC. Gross Descr iptio n: The speci men consi sted of a mckeon fragm ent which was bisec nora and measu red 8 x 5 x 1 mm. All submi tted in one casse tte. Micro scopi c Descr iptio n: Nests and aggre torrez of immat ure basal oid epith elial cells with perip heral palis ading are prese nt in the dermi s. ALCIDESNA THERESAO BOLANOS MD Emily d Out Date: 02/18 11:47 1 Not Available [facility] [address] [place] [address], [phone], 02/18/2025 11:47:30 Result Notes None recorded. Problems Name Problem SNOMED Code Status Onset Date Resolution Date Notes Provider Name and Address Organization Details Recorded Time Prostate specific antigen above reference range 840431438 Active 2014 From Automated Load;Provi spencer: Deb Duran;Sta tus: Active Not Available [facility] 6 09:16:49 Blood in urine 02407854 Active 2014 From Automated Load;Provi spencer: Deb Duran;Sta tus: Active Not Available [facility] 6 09:16:49 Actinic keratosis Active 2015 From Automated Load;Provi spencer: Bryan Singh;Sta tus: Active Not Available [facility] 6 09:16:49 Squamous cell carcinoma of head and/or neck Active 2015 From Automated Load;Provi spencer: Bryan Singh;Sta tus: Active Not Available [facility] 6 09:16:49 Problem Notes None recorded. Procedures Surgical History Date Name Laterality Status Provider Name and Address Organization Details Recorded Time 02/15/20 25 DAK - Biopsy, Tangential completed Tony Rascon [facility] 02/14/2025 13:45:20 12/24/19 25 Destruction [place] Lesion; face, ear, eyelid, nose, lip completed Mirella Hardy [facility] 12/24/2024 10:43:26 12/10/19 25 Destruction [place] Lesion; face, ear, eyelid, nose, lip completed BRYAN SINGH MD [address] [place] [address], [phone], [facility] 12/20/2024 18:07:13 12/10/19 25 Shave Lesion; trunk, arm, leg completed BRYAN SINGH MD [address] [place] [address], [phone], [facility] 12/20/2024 18:07:43 12/10/19 25 Destruction Premalignant Lesion(s) completed [facility] 12/10/2024 10:24:21 11/20/19 25 Destruction MN Lesion; scalp, neck, hand, foot, genitalia completed [facility] 11/20/2024 09:26:36 11/13/19 25 Destruction MN Lesion; scalp, neck, hand, foot, genitalia completed BRYAN SINGH MD [address] [place] [address] [place], [address], [facility] 11/18/2024 14:44:43 11/13/19 25 Biopsy Skin Lesion; Tangential completed BRYAN SINGH MD [address] [place] [address] [place], [address], [facility] 11/18/2024 14:43:25 11/13/19 25 Destruction Premalignant Lesion(s) completed [facility] 11/13/2024 09:39:14 06/05/20 24 Destruction MN Lesion; face, ear, eyelid, nose, lip completed BRYAN SINGH MD [address] [place] [address] [place], [address], [facility] 06/10/2024 20:33:05 06/05/20 24 Destruction Premalignant Lesion(s) completed [facility] 06/05/2024 10:37:26 12/06/19 24 Destruction Premalignant Lesion(s) completed Cherrie Elias [facility] 12/06/2023 10:28:59 09/27/20 23 Destruction MN Lesion; scalp, neck, hand, foot, genitalia completed Cherrie Elias [facility] 09/27/2023 10:33:57 09/09/20 23 Destruction MN Lesion; scalp, neck, hand, foot, genitalia completed RBYAN SINGH MD [address] [place] [address] [place], [address], [facility] 09/13/2023 14:10:08 09/09/20 23 Destruction Premalignant Lesion(s) completed Cherrie Elias [facility] 09/09/2023 08:45:42 05/27/20 23 Destruction MN Lesion; face, ear, eyelid, nose, lip completed BRYAN SINGH MD [address] [place], [address], [facility] 05/27/2023 17:14:21 05/27/20 23 Destruction Premalignant Lesion(s) completed Kamila Smith [facility] 05/27/2023 13:37:47 03/07/20 23 Destruction Premalignant Lesion(s) [facility] 03/07/2023 09:17:47 12/07/19 23 Destruction MN Lesion; trunk, arm, leg completed Armida Barry [facility] 12/07/2022 10:45:30 12/07/19 23 Destruction Premalignant Lesion(s) completed Armidaaleena Barry [facility] 12/07/2022 10:33:15 12/01/19 22 Destruction Premalignant Lesion(s) completed Kamila Smith [facility] 12/01/2021 10:23:41 12/02/19 21 Destruction Premalignant Lesion(s) completed Cherrie TyXiong [facility] 12/02/2020 09:52:27 04/10/20 19 Destruction Premalignant Lesion(s) completed Cherrie TyXiong [facility] 04/10/2019 12:25:58 01/03/20 19 Shave Lesion; trunk, arm, leg completed BRYAN SINGH MD [address] [place], [address], [facility] 01/04/2019 19:27:35 11/28/19 19 Destruction Premalignant Lesion(s) completed Kamila Smith [facility] 11/28/2018 09:50:32 03/30/20 18 Post Void Residual; Ultrasound completed Sandrita Moffett [facility] 03/30/2018 10:06:25 11/22/19 18 Destruction Premalignant Lesion(s) completed Cherrie TyTyrese [facility] 11/22/2017 09:31:51 11/21/19 18 Biopsy Prostate, Needle w/Transrectal US completed DEB DURAN MD [address] [place], [address], [place] [facility] 11/21/2017 11:16:16 09/19/20 17 Post Void Residual; Ultrasound completed Sandrita [facility] 09/19/2017 13:31:13 06/28/20 17 Post Void Residual; Ultrasound completed Sandrita [facility] 06/28/2017 09:06:52 11/16/19 17 Destruction Premalignant Lesion(s) completed Cherrie Elias [facility] 11/16/2016 09:24:09 Imaging Results None recorded. Procedure Notes None recorded. Medical Equipment None Reported. Allergies No known drug allergies Medications Name Sig Start Date Stop Date Status Note LastModified by Organization Details LastModified Time doxycycli ne hyclate 100 mg capsule Take 1 capsule twice a day by oral route with meal(s) for 7 days. 2024 active Not Available Not Available Not Avai lable Niaspan 500 mg tablet,ex tended release Bedtime active Instruct ions: 1 hs with a snack. Increas e one tablet q 2 weeks as tolerate d up to 4 tabs hs;Frequ ency: hs;Medic ation Descript ion: niacin; Dosage:1 ; Route:or al; refills: 5; Quantity :30 tablet, extended release Not Available Not Available Not Available Cipro 500 mg tablet Take 1 tablet every 12 hours by oral route for 3 days. 12/01 completed Not Available Not Available Not Available aspirin 81 mg tablet Daily active Duration : 30 days;Seth quency: daily;Me dication Descript ion: aspirin; Dosage:1 ; Route:or al; refills: 0; Quantity :30 tablet Not Available Not Available Not Available lisinopri l 10 mg-hydroc hlorothia zide 12.5 mg tablet Daily active Duration : 30 days;Seth quency: daily;Me dication Descript ion: hydrochl orothiaz gabby-edwni nopril; Dosage:1 ; Route:or al; refills: 0; Quantity :30 tablet Not Available Not Available Not Available fluocinon gabby 0.05 % topical cream Two times a day 2013 active Instruct ions: Apply to the affected area twice daily;Fr equency: bid;Medi cation Descript ion: fluocino nide topical; Dosage:1 ; Route:to pical; refills: 1; Quantity :1 cream Not Available Not Available Not Available gentamici n 0.1 % topical ointment APPLY A SMALL AMOUNT TO THE AFFECTED AREA BY TOPICAL ROUTE 2 TIMES PER DAY FOR THE FIRST 2 WEEKS, THEN SWITCH TO VASELINE UNTIL FULLY HEALED. 2023 active Not Available Not Available Not Avai lable potassium chloride Daily active Frequenc y: daily;Me dication Descript ion: potassiu m chloride ; Dosage:1 ; refills: 5; Quantity :30 Not Available Not Available Not Available clobetaso l Two times a day 12/01 completed Duration : 14 days;Ins truction s: Apply to the affected area twice daily.;F requency : bid;Medi cation Descript ion: clobetas ol topical; Dosage:1 ; Route:to pical; refills: 2; Quantity :60 ointment Not Available Not Available Not Available simvastat in active Medicati on Descript ion: simvasta tin; Route:or al; refills: 0 Not Available Not Available Not Available Vitals None Recorded Social History Question Answer Notes LastModified by Organizat ion Details LastModified Time Tobacco Smoking Status Former Smoker Cherrie Elias [facility] [place] [facility] 11/16/2016 09:08:46 What Was The Date Of Your Most Recent Tobacco Screening? 01/02/2019 Information n ot available 12/18/2019 Sex: Male Functional Status None recorded. Mental Status None recorded. Family History Nothing Reported. Medical History Condition Response Squamous Cell Carcinoma Y Basal Cell Carcinoma Y Melanoma N Past Encounters Encounter ID Performer Location Encounter Start Date Encounter Closed Date Diagnosis/Indication Diagnosis SNOMED-CT Code Diagnosis ICD10 Code Diagnosis Note [id number] DEB DURAN MD UROLOGY [facility] [address] [place] [address] 10/21/2016 08:40:45 10/21/2016 13:04:05 Prostate specific antigen above reference range 721529983 R97.20 [id number] BRYAN SINGH MD [facility] [address] [place] [address] 11/16/2016 08:58:34 11/16/2016 09:40:40 Actinic keratosis 312191752 L57.0 Education, then cryodestru ction with liquid nitrogen (LN) x 4,Left hand and ears Senile hyperkeratosis 39 2686196 L82.1 Reassuranc e and education regarding the disorder and options. [id number] DEB DURAN MD [facility]OLOGY [facility] [address] [place] [address] 1 01/27/2017 10:44:35 01/27/2017 11:46:20 Prostate specific antigen above reference range 757681791 R97.20 [id number] QM_IMPORTS [facility] [address] 5 02/01/2017 08:10:24 02/01/2017 08:10:24 [id number] DEB DURAN MD [facility]OLOGY [facility] [address] [place] [address] 1 06/28/2017 08:49:45 06/28/2017 10:03:57 Prostate specific antigen above reference range 886411693 R97.20 Incomplete emptying of urinary bladder 558325348 R39.14 [id number] DEB DURAN MD [facility] [address] [place] [address] 1 09/19/2017 13:21:03 09/19/2017 13:54:24 Prostate specific antigen above reference range 356474222 R97.20 Benign pro static hyperplasia with outflow obstruction 966399434 N40.1 Incomplete emptying of urinary bladder 746874212 R39.14 [id number] DEB DURAN MD [facility]OLOGY [facility] [address] [place] [address] 1 11/01/2017 09:57:59 11/01/2017 11:28:05 Prostate specific antigen above reference range 029947216 R97.20 [id number] DEB DURAN MD [facility]OLOGY [facility] [address] [place] [address] 1 11/21/2017 10:31:08 11/21/2017 11:45:11 Prostate specific antigen above reference range 508550891 R97.20 [id number] BRYAN SINGH MD [facility] [address] [place] [address] 11/22/2017 09:19:53 11/24/2017 09:13:07 History of malignant basal cell neoplasm of skin 967483368 Z85.828 Right lower eyelid and right posterior neck. History of squamous cell carcinoma of skin 385491120 Z85.828 Right upper neck at scalp [place] 577374751 L81.4 Reassuranc e and education regarding the disorder and options. Actinic keratosis 007 L57.0 Education, then cryodestru ction with liquid nitrogen (LN) x 7 [id number] DEB DURAN MD UROLOGY [facility] [address] [place] [address] 11/29/2017 15:19:49 11/30/2017 14:22:46 Prostate specific antigen above reference range 498245842 R97.20 [id number] DEB DURAN MD [facility]OLOGY [facility] [address] [place] [address] 03/30/2018 09:45:27 03/30/2018 10:38:12 Prostate specific antigen above reference range 398641662 R97.20 [id number] DEB DURAN MD [facility]OLOGY [facility] [address] [place] [address] 05/30/2018 08:49:19 05/30/2018 09:17:33 Prostate specific antigen above reference range 447955657 R97.20 [id number] MD [facility] [address] [place] [address] 11/28/2018 09:10:25 11/29/2018 08:16:39 History of malignant basal cell neoplasm of skin 429460337 Z85.828 Right lower eyelid and right posterior neck - doing well History of squamous cell carcinoma of skin 583794340 Z85.828 Right upper neck at scalp - doing well [place] 457980170 L81.4 Reassuranc e Actinic keratosis [address] x 4 Senile hyperkeratosis 39 6190622 L82.1 Reassuranc e [id number] MD DIPAK [facility] [address] [place] [address] 01/02/2019 07:56:09 01/05/2019 08:23:47 History of malignant basal cell neoplasm of skin 489700081 Z85.828 Right lower eyelid and right posterior neck - doing well History of squamous cell carcinoma of skin 350399375 Z85.828 Right upper neck at scalp - doing well [place] 197611426 L81.4 Reassuranc e and education regarding the disorder and options. Neoplasm o f uncertain behavior of skin 54193671 D48.5 Left dorsal forearm - Education, thenshave removaland base destroyed with electrodes sication. [id number] MD DIPAK [facility] [place] [address] [place] [address] 04/10/2019 11:51:58 04/10/2019 13:40:02 History of malignant basal cell neoplasm of skin 509499407 Z85.828 Right lower eyelid and right posterior neck - doing well History of squamous cell carcinoma of skin 858412178 Z85.828 Right upper neck at scalp - doing well [place] 891810433 L81.4 Reassuranc e and education regarding the disorder and options. Senile hyperkeratosis 39 8848798 L82.1 Reassuranc e and education regarding the disorder and options. Actinic keratosis 206716 [address] x 2 [id number] DEB DURAN MD UROLOGY [facility] [address] [place] [address] 10/02/2019 11:30:52 10/02/2019 12:44:28 Prostate specific antigen above reference range 779010375 R97.20 [id number] MD DIPAK BETTS [place] [address] [place] [address] 12/18/2019 08:20:19 12/21/2019 08:40:12 History of malignant basal cell neoplasm of skin 025191953 Z85.828 Right lower eyelid and right posterior neck - doing well History of squamous cell carcinoma of skin 338459088 Z85.828 Right upper neck at scalp - doing well [place] 943092099 L81.4 Reassuranc e Senile hyperkeratosis 39 3832082 L82.1 Reassuranc e Actinic keratosis 849419 007 L57.0 small on face and ears - watch [id number] MD DIPAK BETTS [place] [address] [place] [address] 12/02/2020 08:56:40 12/02/2020 12:31:12 History of malignant basal cell neoplasm of skin 720174386 Z85.828 Right lower eyelid and right posterior neck - doing well History of squamous cell carcinoma of skin 160841858 Z85.828 Right upper neck at scalp - doing well Left lower lid - doing well [place] 354236602 L81.4 Reassuranc e Recommende d Equate Ultra Sunscreen 30+ and sun protecting hats/cloth ing Senile hyperkeratosis 39 5663973 L82.1 Reassuranc e Actinic keratosis [address] x 8 [place] 268014264 L72.0 Reassuranc e and education regarding the disorder and options. [id number] MD DIPAK BETTS [facility] [address] [place] [address] 12/01/2021 09:49:32 12/01/2021 10:32:23 History of malignant basal cell neoplasm of skin 223776472 Z85.828 Right lower eyelid and right posterior neck - doing well History of squamous cell carcinoma of skin 303749176 Z85.828 Right upper neck at scalp - doing well Left lower lid - doing well [place] 361214802 L81.4 Reassuranc e Recommende d Equate Ultra Sunscreen 30+ and sun protecting hats/cloth ing Senile hyperkeratosis 39 8682870 L82.1 Reassuranc e Actinic keratosis [address] x 19 [place] 218817071 L72.0 Reassuranc e [id number] MD DIPAK BETTS [facility] [address] [place] [address] 12/07/2022 10:03:10 12/07/2022 11:03:02 History of malignant basal cell neoplasm of skin 042330252 Z85.828 Right lower eyelid and right posterior neck - doing well History of squamous cell carcinoma of skin 529169154 Z85.828 Right upper neck at scalp - doing well Left lower lid - doing well [place] 299469045 L81.4 Reassuranc e Recommende d Equate Ultra Sunscreen 30+ and sun protecting hats/cloth ing Senile hyperkeratosis 39 8075333 L82.1 Reassuranc e Actinic keratosis 007 L57.0 Education, then cryodestru ction with liquid nitrogen (LN) x 12 [place] 317021226 L72.0 Reassuranc e Neoplasm o f uncertain behavior of skin 35195475 D48.5 right medial chest - Education, thenshave removaland base destroyed with electrodes sication x 3 Squamous c ell carcinoma of skin of trunk 785761677 C44.529 right medial chested&c x 3discussed wound care [id number] MD [facility]AK [facility] [address] [place] [address] 03/07/2023 09:00:07 03/07/2023 09:41:11 History of malignant basal cell neoplasm of skin 400047647 Z85.828 Right lower eyelid and right posterior neck - doing well History of squamous cell carcinoma of skin 235790357 Z85.828 Right upper neck at scalp, Left lower lid, right medial chest - doing well Lentigo 536494164 L81.4 Reassuranc e Recommende d Equate Ultra Sunscreen 30+ and sun protecting hats/cloth ing Senile hyperkeratosis 39 5730848 L82.1 Reassuranc e Actinic keratosis 007 L57.0 Education, then cryodestru ction with liquid nitrogen (LN) x 21 [id number] MD [facility] [address] [place] [address] 05/27/2023 13:07:50 05/27/2023 13:45:07 History of malignant basal cell neoplasm of skin 308245760 Z85.828 Right lower eyelid and right posterior neck - doing well History of squamous cell carcinoma of skin 981359548 Z85.828 Right upper neck at scalp, Left lower lid, right medial chest - doing well Lentigo 966727451 L81.4 Reassuranc e Recommende d Equate Ultra Sunscreen 30+ and sun protecting hats/cloth ing Senile hyperkeratosis 39 6917770 L82.1 Reassuranc e Actinic keratosis [address] x 1 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 516633126 C44.229 Clinically SCCL ear rim at 3 o clockshave removal and treated with EDC x 3 [id number] MD [facility] [address] [place] [phone] 09/09/2023 08:21:47 09/09/2023 09:30:26 History of malignant basal cell neoplasm of skin 054681064 Z85.828 Right lower eyelid and right posterior neck - doing well History of squamous cell carcinoma of skin 006797613 Z85.828 Right upper neck at scalp, Left lower lid, right medial chest - doing wellLeft ear rim at 3 o'clock Lentigo 009856722 L81.4 Reassuranc e Recommende d Equate Ultra Sunscreen 30+ and sun protecting hats/cloth ing Senile hyperkeratosis 39 5659294 L82.1 Reassuranc e Actinic keratosis [address] x 17 Neoplasm o f uncertain behavior of skin 68501766 D48.5 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 362759768 C44.42 left upper mastoid - Education, thenshave removaland base destroyed with electrodes sication [id number] MD [facility] [address] [place] [address] 09/27/2023 09:43:20 09/27/2023 10:34:32 History of malignant basal cell neoplasm of skin 060559016 Z85.828 Right lower eyelid and right posterior neck - doing well History of squamous cell carcinoma of skin 626957586 Z85.828 Right upper neck at scalp, Left lower lid, right medial chest - doing wellLeft ear rim at 3 o'clock 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 378050138 C44.42 left upper mastoid - treated with EDC x 3 [id number] MD [facility] [address] [place] [phone] 12/06/2023 09:47:50 12/06/2023 10:40:38 History of malignant basal cell neoplasm of skin 246175202 Z85.828 Right lower eyelid and right posterior neck - doing well History of squamous cell carcinoma of skin 199355303 Z85.828 Right upper neck at scalp, Left lower lid, right medial chest - doing wellLeft ear rim at 3 o'clock left upper mastoid Actinic keratosis 393490 [address] x 9 Lentiginosis 805194415 L 81.4 Reassuranc e and education regarding the disorder and options.Re commended Equate Ultra Sunscreen 30+ and sun protecting hats/cloth ing [id number] BRYAN SINGH MD [facility] [address] [place] [address] 06/05/2024 09:14:32 06/05/2024 10:44:42 History of malignant basal cell neoplasm of skin 798134004 Z85.828 Right lower eyelid and right posterior neck - doing well History of squamous cell carcinoma of skin 339666310 Z85.828 Right upper neck at scalp, Left lower lid, right medial chest - doing wellLeft ear rim at 3 o'clock, left upper mastoid - doing well Actinic keratosis [address] x 1Early on Rt lower eyelid - watch Lentiginosis 015156644 L 81.4 Reassuranc e and education regarding the disorder and options.Re commended Equate Ultra Sunscreen 30+ and sun protecting hats/cloth ing Neoplasm o f uncertain behavior of skin 08974239 D48.5 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 Discussed risk of recurrence and new skin cancers, so regular self exam and profession al skin checks are recommende d. Sun protection with broad spectrum SPF 30 sunscreen and broad-brim med hat is recommende d. Sun protection with SPF 30 broad spectrum sunscreen and protective gear discussed. Postoperative visit 1836 97295 Z09 Scar 438780359 L90.5 [id number] BRYAN SINGH MD [facility] [address] [place] [address] 11/13/2024 08:41:21 11/13/2024 10:32:13 History of malignant basal cell neoplasm of skin 554000164 Z85.828 Right lower eyelid and right posterior neck - doing well History of squamous cell carcinoma of skin 407234279 Z85.828 Right upper neck at scalp, Left lower lid, right medial chest - doing wellLeft ear rim at 3 o'clock, left upper mastoid, R ear deion of helix - doing well Lentiginosis 723444327 L 81.4 Reassuranc e and education regarding the disorder and options.Re commended Equate Ultra Sunscreen 30+ and sun protecting hats/cloth ing Actinic keratosis [address] x 15 Neoplasm o f uncertain behavior of skin 36581192 D48.5 A. Left upper pre auricularE ducation, thenshave bxand base destroyed with electrodes sication. R/O CAConsent and Photos obtainedSe e procedure notePatien t tolerated wellWound care informatio n providedFo llow up pend path 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 796753316 C44.42 B. left upper neckEducat ion, thenshave removaland base destroyed with electrodes sication. R/O CAConsent and Photos obtainedSe e procedure notePatien t tolerated wellWound care informatio n providedFo llow up pend path Squamous c ell carcinoma of hand 190330931 C44.622 C. Right dorsal radial handEducat ion, thenshave removaland base destroyed with electrodes sication. R/O CAConsent and Photos obtainedSe e procedure notePatien t tolerated wellWound care informatio n providedFo llow up pend path [id number] BRYAN SINGH MD [facility] [address] [place] [address] 11/20/2024 08:27:28 11/20/2024 11:39:46 History of malignant basal cell neoplasm of skin 232407768 Z85.828 Right lower eyelid and right posterior neck - doing well History of squamous cell carcinoma of skin 837102847 Z85.828 Right upper neck at scalp, Left lower lid, right medial chest - doing wellLeft ear rim at 3 o'clock, left upper mastoid, R ear deion of helix - doing well Squamous c ell carcinoma of hand 706199622 C44.622 Rt dorsal radial handEDC x3 todayConse nt obtainedSe e procedure notePt tolerated wellWound care informatio n providedF/ u in 3-4 months Squamous c ell carcinoma of skin of face 340253008 C44.320 Lt upper preauricul arPending Mohs 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 464443627 C44.42 Lt upper neckPendin g Mohs [id number] BRYAN SINGH MD [facility] [address] [place] [address] 12/10/2024 09:30:16 12/10/2024 10:41:21 History of malignant basal cell neoplasm of skin 155481853 Z85.828 Right lower eyelid and right posterior neck - doing well History of squamous cell carcinoma of skin 047562330 Z85.828 Right upper neck at scalp, Left lower lid, right medial chest, Rt dorsal radial hand- doing wellLeft ear rim at 3 o'clock, left upper mastoid, R ear deion of helix - doing well Lentiginosis 344961207 L 81.4 Reassuranc e and education regarding the disorder and options.Re commended Equate Ultra Sunscreen 30+ and sun protecting hats/cloth ing Raised tita orrheic keratosis 8110843263 09129 L82.1 reassuranc e Actinic keratosis 000698 [address] x 5 Neoplasm o f uncertain behavior of skin 82419433 D48.5 A. Left Dorsal First Hand WebEducati on, thenshave removaland base destroyed with electrodes sication. R/O SCCConsent and Photos obtainedSe e procedure notePatien t tolerated wellWound care informatio n providedFo llow up pend path Squamous c ell carcinoma of skin of face 346397505 C44.320 B. Right Lateral CheekEduca tion, thenshave removaland base destroyed with electrodes sication. R/O SCCConsent and Photos obtainedSe e procedure notePatien t tolerated wellWound care informatio n providedFo llow up pend path [id number] BASSAM VALERIO MD [facility] [address] [place] [phone] 12/11/2024 10:24:46 12/13/2024 11:12:03 [id number] BRYAN SINGH MD [facility] [address] [place] [address] 12/24/2024 09:32:52 12/24/2024 11:17:34 History of malignant basal cell neoplasm of skin 584539983 Z85.828 Right lower eyelid and right posterior neck - doing well History of squamous cell carcinoma of skin 161728573 Z85.828 Right upper neck at scalp, Left lower lid, right medial chest, Rt dorsal radial hand- doing wellLeft ear rim at 3 o'clock, left upper mastoid, R ear deion of helix - doing well Squamous c ell carcinoma of skin of face 765604097 C44.320 Right Lateral CheekEduca tion, then remnants destroyed with electrodes sication and curettage times 3 (ED&C X 3) Consent obtainedSe e procedure notePatien t tolerated wellWound care informatio n providedFo llow up 3-4 months Neoplasm o f uncertain behavior of skin 40900976 D48.5 Left Dorsal First Hand WebPath result- Proliferat ing verrucous keratosis with atypiaWIll cont to watch for now [id number] BASSAM VALERIO MD [facility] [address] [place] [address] 02/14/2025 12:56:13 02/18/2025 14:26:01 Neoplasm of uncertain behavior of skin 80084341 D48.5 biopsy performed today Squamous c ell carcinoma of head and neck 766707311 C44.42 Mohs surgery performed today. Health Concerns Section Related Observation LastModified by Organization Detai ls LastModified Time None Recorded Concern Status LastModified by Organization Details LastModified Time None Recorded Advance Directives Directive None Recorded Payers Insurance Date Sequence Insurance Name Policy Number Policy Chen Covered Member ID Chen Member ID Guarantor Name 07/09/2024 1 [place] [id number] Rajeev Santillan [id number] Rajeev Santillan 07/09/2024 1 [employer] [facility] (MEDICAID REPLACEMENT - HMO) [place] Rajeev Santillan [id number] Rajeev Santillan 02/18/2025 1 [employer] [facility] (MEDICAID REPLACEMENT - HMO) Rajeev Santillan [id number] Rajeev Santillan Notes Date Note Type Note Provider Name and Address Organization Details Recorded Time 11/20/2024 text/html Established Patient - Presents for EDC of bx proven SCC on Rt dorsal radial hand. He is being referred to Mohs for bx proven SCC on Lt upper preauricular and Lt upper neck. Pt reports bx sites are healing well, no concerns. Monitor: BCC and SCC Patient is on ASA No issues with scarring, or healing Denies any other new, changing, or bleeding lesions, or other rashes, feels well , good mood and has no family history of melanoma. BRYAN SINGH MD [address] [place] [address], [phone], [facility] 11/20/2024 12:14:49 12/10/2024 text/html Established Patient - Pt presents today for annual exam. Pt had EDC X 3 on 11/20/2024. Pt is having MOHS tomorrow on left upper pre auricular and Left upper neck on 02-14-2025 at [facility]. Monitor: BCC and SCCPt is present today for annual skin exam. Pt has no concerns Patient is on ASA No issues with scarring, or healing Denies any other new, changing, or bleeding lesions, or other rashes, feels well , good mood and has no family history of melanoma. BRYAN SINGH MD [address] [place] [address], [phone], [facility] 12/20/2024 18:09:32 12/24/2024 text/html Established Patient - Pt is present today for EDC on left dorsal 1st hand web and Right lateral cheek both bx and proven SCC. Pt states the sites have healed well. Pt had MOHS done on left upper pre auricular on 12/11/2024 and is getting MOHS on Left upper neck on 02-14-2025 at [facility]. Monitor: BCC and SCC Patient is on ASA No issues with scarring, or healing Denies any other new, changing, or bleeding lesions, or other rashes, feels well , good mood and has no family history of melanoma. BRYAN SINGH MD [address] [place] [address], [phone], [facility] 12/24/2024 12:29:47 02/14/2025 text/html Patient presents for mohs but has an area of concern. BASSAM VALERIO MD [address] [place] [address], [phone], [facility] 02/15/2025 16:57:47
--- OUTSIDE RECORDS SUMMARY | 2025-03-29 13:36 | XMS_ITS | Continuity of Care Document ---
Author Organization [facility] PAOLA Andrade [place] Address [address] [place] [address] Care Team Providers Care Business Support Manager Name Role Phone DEB DURAN Urologist Assessment No assessment recorded. Plan of Treatment Reminders Order Date Submit Date Provider Last Modified By Organization Details Last Modified Time Details Appointments [facility] 2024 11:00A Gonzales VALERIO MD Not available Not available Not available [facility] 2024 08:45A Gonzales VILLELA MD Not available Not available Not available [facility] 2025 09:30A Gonzales VILLELA MD Not available Not available Not available Lab surgical pathology study - R/O Squamous Cell Carcinoma 2024 025 [facility], [address] [place] [address], [phone], 02/18/2025 11:47:30 Referral None recorded. Procedures None recorded. Surgeries None recorded. Imaging None recorded. Medication Orders None recorded. Patient TargetsNo targets recorded. Patient InstructionsNo instructions recorded. Reason for Referral None Reported. Problems Name Problem SNOMED Code Status Onset Date Resolution Date Notes Provider Name and Address Organization Details Recorded Time Prostate specific antigen above reference range 829284484 Active 2014 From Automated Load;Provi spencer: Madison DuranSta tus: Active Not Available [facility] 09:16:49 Blood in urine 50497366 Active 2014 From Automated Load;Provi spencer: Madison DuranSta tus: Active Not Available [facility] 6 09:16:49 Actinic keratosis 295832729 Active 2015 From Automated Load;Provi spencer: Bryan Villela;Sta tus: Active Not Available [facility] 6 09:16:49 Squamous cell carcinoma of head and/or neck Active 2015 From Automated Load;Provi spencer: Bryan Villela;Sta tus: Active Not Available [facility] 6 09:16:49 Problem Notes None recorded. Procedures Surgical History Date Name Laterality Status Provider Name and Address Organization Details Recorded Time 02/15/20 25 DAK - Biopsy, Tangential completed Tony Rascon [facility] 02/14/2025 13:45:20 12/24/19 25 Destruction [place] Lesion; face, ear, eyelid, nose, lip completed [facility] 12/24/2024 10:43:26 12/10/19 25 Destruction MN Lesion; face, ear, eyelid, nose, lip completed BRYAN VILLELA MD [address] [place] [address], [phone] 12/20/2024 18:07:13 12/10/19 25 Shave Lesion; trunk, arm, leg completed BRYAN VILLELA MD [address] [place] [address], [phone] 12/20/2024 18:07:43 12/10/19 25 Destruction Premalignant Lesion(s) completed [facility] 12/10/2024 10:24:21 11/20/19 25 Destruction MN Lesion; scalp, neck, hand, foot, genitalia completed Rita [facility] 11/20/2024 09:26:36 11/13/19 25 Destruction MN Lesion; scalp, neck, hand, foot, genitalia completed BRYAN VILLELA MD [address] [place] [address], [phone], [facility] 11/18/2024 14:44:43 11/13/19 25 Biopsy Skin Lesion; Tangential completed BRYAN VILLELA MD [address] [place] [address], [phone] 11/18/2024 14:43:25 11/13/19 25 Destruction Premalignant Lesion(s) completed Mirella Antony [facility] 11/13/2024 09:39:14 06/05/20 24 Destruction MN Lesion; face, ear, eyelid, nose, lip completed BRYAN VILLELA MD [address] [place], [address], [facility] 06/10/2024 20:33:05 06/05/20 24 Destruction Premalignant Lesion(s) completed Rita Chavez [facility] 06/05/2024 10:37:26 12/06/19 24 Destruction Premalignant Lesion(s) completed Cherrie TyTyrese [facility] 12/06/2023 10:28:59 09/27/20 23 Destruction MN Lesion; scalp, neck, hand, foot, genitalia completed Cherrie TyTyrese [facility] 09/27/2023 10:33:57 09/09/20 23 Destruction MN Lesion; scalp, neck, hand, foot, genitalia completed BRYAN VILLELA MD [address] [place], [address], [facility] 09/13/2023 14:10:08 09/09/20 23 Destruction Premalignant Lesion(s) completed Cherrie TyTyrese [facility] 09/09/2023 08:45:42 05/27/20 23 Destruction MN Lesion; face, ear, eyelid, nose, lip completed BRYAN VILLELA MD [address] [place], [address], [facility] 05/27/2023 17:14:21 05/27/20 23 Destruction Premalignant Lesion(s) completed Kamila Smith [facility] 05/27/2023 13:37:47 03/07/20 23 Destruction Premalignant Lesion(s) completed Cherrie TyTyrese [facility] 03/07/2023 09:17:47 12/07/19 23 Destruction MN Lesion; trunk, arm, leg completed Armida Barry [facility] 12/07/2022 10:45:30 12/07/19 23 Destruction Premalignant Lesion(s) completed Armida Barry [facility] 12/07/2022 10:33:15 12/01/19 22 Destruction Premalignant Lesion(s) completed Kamila Clarkton [facility] 12/01/2021 10:23:41 12/02/19 21 Destruction Premalignant Lesion(s) completed [facility] 12/02/2020 09:52:27 04/10/20 19 Destruction Premalignant Lesion(s) completed [facility] 04/10/2019 12:25:58 01/03/20 19 Shave Lesion; trunk, arm, leg completed BRYAN VILLELA MD [facility] [place], [address], [facility] 01/04/2019 19:27:35 11/28/19 19 Destruction Premalignant Lesion(s) completed Kamila [facility] 11/28/2018 09:50:32 03/30/20 18 Post Void Residual; Ultrasound completed [facility] 03/30/2018 10:06:25 11/22/19 18 Destruction Premalignant Lesion(s) completed [facility] 11/22/2017 09:31:51 11/21/19 18 Biopsy Prostate, Needle w/Transrectal US completed DEB DURAN MD [address] [place], [address], [facility] 11/21/2017 11:16:16 09/19/20 17 Post Void Residual; Ultrasound completed [facility] 09/19/2017 13:31:13 06/28/20 17 Post Void Residual; Ultrasound completed [facility] 06/28/2017 09:06:52 11/16/19 17 Destruction Premalignant Lesion(s) [facility] 09:24:09 Imaging Results None recorded. [...] Instruct ions: 1 hs with a snack. Increase one tablet q 2 weeks as tolerate [...] quency: daily;Me dication Descript ion: hydrochl orothiaz gabby-edwin nopril; Dosage:1 ; Route:or al; refills: 0; [...] Time Tobacco Smoking Status [facility]/2016 09:08:46 What Was The Date Of [...] SNOMED-CT Code Diagnosis ICD10 Code Diagnosis Note [id number] BASSAM VALERIO MD [address] [address] 02/14/2025 12:56:13 02/18/2025 14:26:01 Neoplasm of uncertain behavior of skin 10109924 D48.5 biopsy performed today Squamous c ell carcinoma of head and neck 541358138 C44.42 Mohs surgery performed today. Health Concerns Section Related Observation LastModified by Organization Detai ls LastModified Time None Recorded Concern Status LastModified by Organization Details LastModified Time None Recorded Payers Encounter Date Sequence Insurance Name Policy Number Policy Chen Covered Member ID Chen Member ID Guarantor Name 02/14/2025 1 [facility] (MEDICAID REPLACEMENT - HMO) Rajeev Santillan [id number] Rajeev Santillan Notes Date Note Type Note Provider Name and Address Organization Details Recorded Time 02/14/2025 text/html Patient presents for mohs but has an area of concern. BASSAM VALERIO MD [address] [place] [address], [phone], [facility] 02/15/2025 16:57:47
== END 2025-03-28 23:59 | disposition home or self-care (01) ==
LOC: LAB.DROPOF 03-29 13:35
PROVIDERS: PCP Family Medicine; Visit Provider Family Medicine
DX: E55.9 Vitamin D deficiency, unspecified (principal); E11.59 Type 2 diabetes mellitus with other circulatory complications; I10 Essential (primary) hypertension
CPT/HCPCS: 80061; 82306; 83036; 85025; G0103

== ENCOUNTER 2025-06-03 09:08 | Outpatient (CLI) | payer MEDICAID, SELFPAY ==
[2025-06-03 15:39] LABS: Alanine Aminotransferase 20 U/L (12-78); Albumin Level 4.3 g/dl (3.5-5.0); Albumin/Globulin Ratio 2.0 (1.1-1.8); Alkaline Phosphatase 69 U/L (38-126); Anion Gap 11.1 mEq/L (5-15); Aspartate Amino Transferase 25 U/L (17-59); Bilirubin,Total 0.5 mg/dl (0.2-1.3); Blood Urea Nitrogen 15 mg/dl (9-20); Calcium 9.0 mg/dl (8.4-10.2); Carbon Dioxide 34 mmol/L (22.0-30.0); Chloride 97 mmol/L (98-107); Creatinine,Serum 0.70 mg/dl (0.66-1.25); Estimated Glomerular Filt Rate 114 ml/min (>60); GFR (African American) 137 ML/MIN (>60); Globulin 2.2 g/dL (1.3-3.2); Glucose 169 mg/dl (74-100); Potassium 3.1 mmoL/L (3.5-5.1); Sodium 139 mmol/L (136-145); Total Protein,Serum 6.5 g/dl (6.3-8.2)
[2025-06-03 16:10] LABS: Prostate Specific Ag, Diagnost 6.97 ng/ml (0.0-4.0)
--- OUTSIDE RECORDS SUMMARY | 2025-06-04 12:36 | XMS_ITS | Encounter Summary ---
Author Organization [employer] ([place], [place], [place], [place]) Address [address] [place] [address] Care Team Providers Care Insurance Marketing Rep Name Role Phone [facility], Provider Not In The System MD Primary Care Provider Unavailable Reason for Referral * MRI (Routine) - Closed Specialty Diagnoses / Procedures Referred By Contkody t Referred To Contact Radiology Diagnoses Enlarged prostate with urinary obstruction Procedures MR prostate without & with IV contrast Alli Najera MD [address] [place] [address] Phone: tel: fax: Referral ID Status Reason Start Date Expiration Date Visits Re quested Visits Authorized [id number] Closed 11/29/2023 02/27/2024 1 1 Encounter Details Date Type Department Care Team (Late st Contact Info) Description 11/30/2023 Outside Orders [facility] Central Scheduling [address] [place] [address] Alli Najera MD [address] [place] [address] Enlarged prostate with urinary obstruction (Primary Dx) Social History Tobacco Use Types Packs/Day Years Used Date Smoking Tobacco: Never Assessed Food Insecurity Answer Date Recorded Food run out past 12 months Not on file 11/02 Food did not last past 12 months Not on file 11/30/2023 Employment Answer Date Recorded Help finding and keeping a job Not on file 0 11/30/2023 Family and Community Support Answer Everett e Recorded Help with Day to Day Activities Not on file 11/30/2023 Feeling Lonely or Isolated Not on file 11/30 Educational Attainment Answer Date Raúl rded Speak language other than Armenian at home Not on file 11/30/2023 Want help with school or training Not on file 11/30/2023 Substance Use Answer Date Recorded Used prescription meds for non-medical reasons N ot on file 11/30/2023 Used illegal drugs past 12 months Not on file 11/30/2023 Sex and Gender Information Value Date Recorded Sex Assigned at Not on file 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 Indeterminate area in the right transition zone at the mid gland. Cortical PI-RADS 3 - Intermediate (the presence of clinically significant cancer is equivocal). Images reviewed, interpreted, and dictated by Nick Dickson MD Narrative 12/12/2023 11:59 AM EST MR PELVIS WITHOUT AND WITH CONTRAST HISTORY: Elevated PSA COMPARISON: None FINDINGS: Multiplanar MR imaging of the pelvis was performed without and with contrast using the prostate MRI protocol. The images were reviewed on the [employer] CAD workstation. The prostate measures 5.7 x 4.8 x 4.5 cm. This corresponds to a volume of 60 cc. PERIPHERAL ZONE: No area of abnormal restricted diffusion is seen in the peripheral zone. No nodule is identified in the peripheral zone. No abnormal contrast kinetics are seen in the peripheral zone. TRANSITION ZONE: The transition zone is enlarged and nodular consistent with BPH. Bilateral sizable areas of abnormal contrast kinetics are seen as a nonspecific finding. There is a 12 x 9 mm area of decreased T2 signal involving the right transition zone at the mid gland with significant restricted diffusion. This is consistent with a PI-RADS 3 lesion and was localized on the [employer] CAD software. Review of the remainder of the pelvis reveals no evidence of mass or adenopathy. No abnormal fluid collection is seen. Multiple diverticula are seen in the sigmoid colon. A small right inguinal hernia is seen containing fat only. Procedure Note Nick Dickson MD - 12/12/2023 MR PELVIS WITHOUT AND WITH CONTRAST HISTORY: Elevated PSA COMPARISON: None FINDINGS: Multiplanar MR imaging of the pelvis was performed without and with contrast using the prostate MRI protocol. The images were reviewed on the [employer] CAD workstation. The prostate measures 5.7 x 4.8 x 4.5 cm. This corresponds to a volume of 60 cc. PERIPHERAL ZONE: No area of abnormal restricted diffusion is seen in the peripheral zone. No nodule is identified in the peripheral zone. No abnormal contrast kinetics are seen in the peripheral zone. TRANSITION ZONE: The transition zone is enlarged and nodular consistent with BPH. Bilateral sizable areas of abnormal contrast kinetics are seen as a nonspecific finding. There is a 12 x 9 mm area of decreased T2 signal involving the right transition zone at the mid gland with significant restricted diffusion. This is consistent with a PI-RADS 3 lesion and was localized on the [employer] CAD software. Review of the remainder of the pelvis reveals no evidence of mass or adenopathy. No abnormal fluid collection is seen. Multiple diverticula are seen in the sigmoid colon. A small right inguinal hernia is seen containing fat only. IMPRESSION: Enlarged prostate with BPH. Indeterminate area in the right transition zone at the mid gland. Cortical PI-RADS 3 - Intermediate (the presence of clinically significant cancer is equivocal). Images reviewed, interpreted, and dictated by Nick Dickson MD Alli Najera MD IMG MRI ORDERABLES Final Result documented in this encounter Visit Diagnoses Diagnosis Enlarged prostate with urinary obstruction- Primary Hypertrophy of prostate with urinary obstruction and other lower urinary tract symptoms (LUTS) Enlarged prostate with urinary obstruction Hypertrophy of prostate with urinary obstruction and other lower urinary tract symptoms (LUTS) documented in this encounter Care Teams Insurance Marketing Rep Relationship Specialty Start Date End Date [facility], Provider Not In The System, [place] [address] PCP - General 12/12/23 documented as of this encounter
--- OUTSIDE RECORDS SUMMARY | 2025-06-04 12:36 | XMS_ITS | Referral Summary ---
Author Organization [employer] ([place], [place], [place], [place]) Address [address] [place] [address] Care Team Providers Care Payroll Auditor Name Role Phone [facility], Provider Not In The System MD Primary Care Provider Unavailable Allergies No known active allergies Social History Tobacco Use Types Packs/Day Years [...] Date Raúl rded Speak language other than Ugandan at home Not on file 11/30/2023 Want help with school or training Not on file 11/30/2023 Substance Use Answer Date Recorded Used prescription meds for non-medical reasons N ot on file 11/30/2023 Used illegal drugs past 12 months Not on file 11/30/2023 Sex and Gender Information Value Date Recorded Sex Assigned at Not on file Legal Sex Male 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
--- OUTSIDE RECORDS SUMMARY | 2025-06-04 12:36 | XMS_ITS | Clinical Summary ---
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 [employer] Gender Identity Not on file Sexual Orientation Not on file Plan of Treatment Health Maintenance Due Date Last Done Comments CT Colonography 1960 Colonoscopy 1960 Colorectal Cancer Screening 1960 FOBT/FIT 1960 Fit-DNA (Cologuard) 1960 Sigmoidoscopy 1960 Depression Screening (12+) 1972 Tobacco Cessation Counseling and Screening (12+) 1972 HIV Screening 1975 Hepatitis C Screening 1978 DTAP/TDAP/TD VACCINES (1 - Tdap) 1979 Lipid Panel 1995 Pneumococcal 50+ years (1 of 1 - PCV) 2010 Shingles Vaccine (Zoster) (1 of 2) 2010 COVID-19 VACCINE (4 - season) 2024 09/04/2021, 12/05/2020, 11/06/2020 Influenza Vaccine (#1) 2025 Respiratory Syncytial Virus (RSV) Adult or (1 - 1-dose 75+ series) 2035 Insurance [facility] MEDICAID Care Teams Obstetrical Nurse Relationship Specialty Start Date End Date [facility], Provider Not In The System, [place] [address] PCP - General 12/12/23
--- OUTSIDE RECORDS SUMMARY | 2025-06-04 12:36 | XMS_ITS | Clinical Summary ---
[facility] Address [address] [place] [address] Care Team Providers Care Colorer Machine Name Role Phone Provider, No Known Primary Care Provider [phone] Social History Tobacco Use Types Packs/Day Years Used Date Smoking Tobacco: Never Assessed Abuse Screen Answer Date Recorded Unsafe at Home or Work/School Not on file Feels Threatened by Someone? Not on file 08/2023 Does Anyone Keep You from Co ntacting Others or Doint Things Outside the Home? Not on file 08/10/2023 Physical Sign of Abuse Present Not on file 1 Housing Stability Answer Date Recorded Current Living Arrangements Not on file 07/31 Potentially Unsafe Housing Conditions Not on tarah e 08/10/2023 Family and Community Support Answer Everett e Recorded Help with Day-to-Day Activities Not on file 08/10/2023 Lonely or Isolated Not on file 08/10/2023 Employment Answer Date Recorded Do you want help finding or keeping work or a donna b? Not on file 08/10/2023 Disabilities Answer Date Recorded Concentrating, Remembering, or Making Decisions Difficulty Not on file 08/10/2023 Doing Errands Independently Difficulty Not on fi le 08/10/2023 Education Answer Date Recorded Help with school or training? Not on file Preferred Language Not on file 08/10/2023 Sex and Gender Information Value Date Recorded Sex Assigned at Not on file Legal Sex Male 11:25 AM EDT Gender Identity Not on file Sexual Orientation Not on file Plan of Treatment Health Maintenance Due Date Last Done Comments ANNUAL PHYSICAL 1960 HEPATITIS C SCREENING 1960 TDAP/TD VACCINES (1 - Tdap) 1979 COLOGUARD 2005 COLON CANCER SCREENING 5 YEAR SIGMOIDOSCOPY 2005 COLONOSCOPY [address] CANCER SCREENING 2005 [address] COLONOGRAPHY 2005 FECAL OCCULT BLOOD TEST 2005 FIT Testing (1 year) 2005 Pneumococcal Vaccine 50+ (1 of 1 - PCV) 2010 ZOSTER VACCINE (1 of 2) 2010 COVID-19 Vaccine (1 - 2023- season) 2024 INFLUENZA VACCINE 07/31/2025 Care Teams Colorer Machine Relationship Specialty Start Date End Date Provider, No Known [facility] [place] [address] PCP - General 03/17/16
--- OUTSIDE RECORDS SUMMARY | 2025-06-04 12:36 | XMS_ITS | Encounter Summary ---
Author Organization [facility] Address [address] [place] [address] Care Team Providers Care Retail Sales Specialist Name Role Phone Tico Prakash MD Primary Care Provider [phone] Encounter Details Date Type Department Care Team (Late st Contact Info) Description 01/02/2024 Lab Requisition [facility] [address] [place] [address] Alcides Kelly MD [address] [place] [address] Elevated prostate specific antigen (PSA) Social History Tobacco Use Types Packs/Day Years Used Date Smoking Tobacco: Every Day Sex and Gender Information Value Date Recorded Sex Assigned at Not on file Legal Sex Male 8:01 PM EDT Gender Identity Not on file Sexual Orientation Not on file documented as of this encounter Plan of Treatment Not on file documented as of this encounter Procedures Procedure Name Priority Date/Time Associated Diagnosis Comments SURGICAL PATHOLOGY CONSULT Routine 01/02/2024 10:49 AM EST Elevated prostate specific antigen (PSA) documented in this encounter Results * Surgical Pathology Consult (01/02/2024 10:49 AM EST) Case Report Sugical Pathology Consult Case: [id number] Authorizing Provider: Alcides Kelly MD Collected: 01/02/20241048 Ordering Location: [facility] Received: 01/02/2024 104 Pathologist: Rosario Vasquez MD Specimen: Prostate, [id number] 01/02/2024 11:56 AM EST [facility] Final Diagnosis A. PROSTATE, NEEDLE CORE BIOPSIES (OUTSIDE SLIDES [id number], 11/21/2017): - LEFT APEX (C): ATYPICAL SMALL ACINAR PROLIFERATION. - LEFT BASE AND LEFT MID (A AND B): BENIGN PROSTATIC TISSUE. -RIGHT APEX, MID, AND BASE (D-F): BENIGN PROSTATIC TISSUE. 01/02/2024 11:56 AM EST [facility] at 1156 EST Clinical Information R97.20 - Elevated prostate specific antigen (PSA) [ICD-10-CM] 01/02/2024 11:56 AM EST [facility] Microscopic Description A small focus of 2-3 glands is noted with mild atypia. Outside PIN4 stain shows cytoplasmic racemase with patchy preserved basal cells on high molecular weight cytokeratin. 01/02/2024 11:56 AM EST [facility] Gross Description A. [id number] Received along with a corresponding pathology report from [facility] are 4 slide(s) labeled outside case: [id number] collected on 11/21/2017. 01/02/2024 11:56 AM EST [facility] Tissue Prostate / Unknown 10:49 AM EST 01/02/2024 10:49 AM EST Alcides Kelly MD LAB PATHOLOGY ORDERABLES [place] Result Performing Organization Address City/State/[place] Co de Phone Number [facility] [address] [place] [address] documented in this encounter Visit Diagnoses Diagnosis Elevated prostate specific antigen (PSA) documented in this encounter Additional Health Concerns Assessment Noted Time A fall risk assessment has been complete d for the patient 08/26/2021 11:20 AM EDT documented as of this encounter Care Teams Retail Sales Specialist Relationship Specialty Start Date End Date Tico Prakash MD [address] [place] [address] PCP - General 03/13/21 documented as of this encounter
--- OUTSIDE RECORDS SUMMARY | 2025-06-04 12:36 | XMS_ITS | Encounter Summary ---
Author Organization [facility] Address [address] [place] [address] Care Team Providers Care Line Clearance Foreman Name Role Phone Tico Prakash MD Primary Care Provider [phone] Encounter Details Date Type Department Care Team (Late st Contact Info) Description 12/12/2023 Orders Only External Location [address] [place] [address] Alli Najera MD [facility] [address] [address] Social History Tobacco Use Types Packs/Day Years [...] Procedure Name Priority Date/Time Associated Diagnosis Comments MR OUTSIDE IMAGES 12/12/2023 7:59 AM EST documented in this encounter Results * MR transfer of outside films (12/12/2023 7:59 AM EST) Anatomical Region Laterality Modality Magnetic Resonan ce 12/12/2023 7:59 AM EST Alli Najera MD IMG MRI PROCEDURES Final Result documented in this encounter Visit Diagnoses Not on filedocumented in this encounter Additional Health Concerns Assessment Noted Time A fall risk assessment has been complete d for the patient 08/26/2021 11:20 AM EDT documented as of this encounter Care Teams Line Clearance Foreman Relationship Specialty Start Date End Date Tico Prakash MD [address] [place] [address] PCP - General 03/13/21 documented as of this encounter
--- OUTSIDE RECORDS SUMMARY | 2025-06-04 12:36 | XMS_ITS | Clinical Summary ---
Author Organization [facility] Address [address] [place] [address] Care Team Providers Care Repair Table Operator Name Role Phone Tcio Prakash MD Primary Care Provider [phone] Allergies No known active allergies Medications amLODIPine (Norvasc) 5 MG tablet 04/23/2020 Active carvedilol (Coreg) 12.5 MG tablet 04/16/2020 Active cholecalciferol (Vitamin D-3) 25 MCG (1000 UT) capsule TK 1 C PO ONCE DAILY 08/11/2020 Active ergocalciferol (Vitamin D-2) 1.25 MG (98338 UT) capsule 07/14/2020 Active erythromycin (Romycin) 5 MG/GM ophthalmic ointment 10/07/2020 Active gemfibrozil (Lopid) 600 MG tablet 07/15/2020 Active hydroCHLOROthiaz gabby (HYDRODiuril) 25 MG tablet 07/14/2020 Active losartan (Cozaar) 100 MG tablet 07/14/2020 Active potassium chloride CR (Klor-Con M20) 20 MEQ ER tablet 09/21/2020 Ac tive simvastatin (Zocor) 20 MG tablet 07/21/2020 Active cholecalciferol (Vitamin D3) 25 MCG (1000 UT) tablet Take 1,000 Units by mouth 1 (one) time each day. 04/26/2021 Active potassium chloride CR (K-Tab) 20 MEQ ER tablet Take 20 mEq by mouth 1 (one) time each day. 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 Blood in urine 09/30/2015 Raised prostate specific antigen 09/30/2015 Family History Medical History Relation Name Comments Other cancer Father Diabetes Mother Relation Name Status Comments Father Mother Social History Tobacco Use Types Packs/Day Years Used Date Smoking Tobacco: Every Day Sex and Gender Information Value Date Recorded Sex Assigned at Not on file Legal Sex Male 8:01 PM EDT Gender Identity Not on file Sexual Orientation Not on file Plan of Treatment Health Maintenance Due Date Last Done Comments [facility]-Depression Screening 1960 [facility]-Infant/Child/Adol SDOH Screenings 1960 [facility]- SDOH Screenings 1978 [facility]-Adult SDOH Screenings 1978 [facility]-DTaP,Tdap,and Td Vaccine s (1 - Tdap) 1979 CT Colonography 2005 Colonoscopy 2005 FIT-DNA 2005 FIT 2005 FOBT 2005 Sigmoidoscopy 2005 [facility]-Colorectal Cancer Screening 2005 [facility]-Pneumococcal Vaccine: 50 + Years (1 of 1 - PCV) 2010 [facility]-Zoster Vaccines (1 of 2) 2010 [id number] Vaccine (3 season) 2024 12/05/2020, 11/06/2020 [facility]-Influenza Vaccine (#1) 2025 [facility]-RSV Vaccine: 60+ Years o r (1 - 1-dose 75+ series) 2035 HPV Vaccines Aged Out No longer eligi ble based on patient's age to complete this topic [facility]-HIB Vaccines Aged Out No longer e ligible based on patient's age to complete this topic [facility]-Hepatitis A Vaccines Aged Out No longer eligible based on patient's age to complete this topic [facility]-IPV Vaccines Aged Out No longer e ligible based on patient's age to complete this topic [facility]-Rotavirus Vaccines Aged Out No lo nger eligible based on patient's age to complete this topic Insurance Care Teams Repair Table Operator Relationship Specialty Start Date End Date Tico Prakash MD [address] [place] [address] PCP - General 03/13/21
== END 2025-06-03 23:59 | disposition home or self-care (01) ==
LOC: LAB.DROPOF 06-04 12:33
PROVIDERS: PCP Family Medicine; Visit Provider Family Medicine
DX: R97.20 Elevated prostate specific antigen [PSA] (principal); E11.59 Type 2 diabetes mellitus with other circulatory complications
CPT/HCPCS: 80053; 82043; 82570; 84153

== ENCOUNTER 2025-07-02 10:58 | Outpatient (CLI) | payer MEDICAID, SELFPAY ==
--- NOTE | 2025-07-02 10:59 | XR_ITS ---
FINAL REPORT CLINICAL HISTORY: right wrist pain COMPARISON: None FINDINGS: RIGHT WRIST Three views demonstrate no acute fracture or dislocation. There is mild narrowing of the radiocarpal joint. The soft tissues are unremarkable. IMPRESSION: Mild degenerative/chronic change without acute bony abnormality. Reviewed, Interpreted and Dictated by Leo Francis MD Transcribed by Carly Jose Authenticated and [facility]
--- OUTSIDE RECORDS SUMMARY | 2025-07-02 11:27 | XMS_ITS | Clinical Summary ---
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
--- OUTSIDE RECORDS SUMMARY | 2025-07-02 11:27 | XMS_ITS | Referral Summary ---
Author Organization [employer] ([place], [place], [place], [place]) Address [address] [place] [address] Care Team Providers Care Manufacturing Clerk Name Role Phone [facility], Provider Not In The System MD Primary [...] Date Raúl rded Speak language other than Nepali at home Not on file 11/30/2023 Want help with school or training Not on file 11/30/2023 Substance Use Answer Date Recorded Used prescription meds for non-medical reasons N ot on file 11/30/2023 Used illegal drugs past 12 months Not on file 11/30/2023 Sex and Gender Information Value Date Recorded Sex Assigned at Not on file Legal Sex Male 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
--- OUTSIDE RECORDS SUMMARY | 2025-07-02 11:27 | XMS_ITS | Clinical Summary ---
Author Organization [facility] Address [address] [place] [address] Care Team Providers Care Test Operator Name Role Phone Tico Prakash MD Primary Care Provider [phone] Allergies No known active allergies Medications amLODIPine (Norvasc) 5 MG tablet 04/23/2020 Active carvedilol (Coreg) 12.5 MG tablet 04/16/2020 Active cholecalciferol (Vitamin D-3) 25 MCG (1000 UT) capsule TK 1 C PO ONCE DAILY 08/11/2020 Active ergocalciferol (Vitamin D-2) 1.25 MG (86182 UT) capsule 07/14/2020 Active erythromycin (Romycin) 5 [...] 2010 [facility]-Zoster Vaccines (1 of 2) 2010 [id number] Vaccine (3 season) 2024 12/05/2020, 11/06/2020 [facility]-Influenza [...] to complete this topic Insurance Care Teams Test Operator Relationship Specialty Start Date End Date Tico Prakash MD [address] [place] [address] PCP - General 03/13/21
--- OUTSIDE RECORDS SUMMARY | 2025-07-02 11:27 | XMS_ITS | Clinical Summary ---
[facility] Address [address] [place] [address] Care Team Providers Care Aviation Maintenance Technician Name Role Phone Provider, No Known Primary Care Provider [phone] Social History Tobacco Use Types Packs/Day Years [...] season) 2024 INFLUENZA VACCINE 07/31/2025 Care Teams Aviation Maintenance Technician Relationship Specialty Start Date End Date Provider, No Known [facility] [place] [address] PCP - General 03/17/16
--- OUTSIDE RECORDS SUMMARY | 2025-07-02 11:27 | XMS_ITS | Encounter Summary ---
Author Organization [facility] Address [address] [place] [address] Care Team Providers Care Hospital Sales Representative Name Role Phone Tico Prakash MD Primary Care Provider [phone] Encounter Details Date Type Department Care Team (Late st Contact Info) Description 01/02/2024 Lab Requisition [facility] [address] [place] [address] Alcides Kelly MD [address] [place] [address] Elevated prostate specific antigen (PSA) Social History [...] EST) Case Report Sugical Pathology Consult Case: [id number] Authorizing Provider: Alcides Kelly MD Collected: 01/02/20241048 Ordering Location: [facility] Received: 01/02/2024 104 Pathologist: Rosario Vasquez MD Specimen: Prostate, [id number] 01/02/2024 11:56 AM EST [facility] Final Diagnosis A. PROSTATE, NEEDLE CORE BIOPSIES (OUTSIDE SLIDES [id number], 11/21/2017): - LEFT APEX (C): ATYPICAL SMALL ACINAR PROLIFERATION. - LEFT BASE AND LEFT MID (A AND B): BENIGN PROSTATIC TISSUE. -RIGHT APEX, MID, AND BASE (D-F): BENIGN PROSTATIC TISSUE. 01/02/2024 11:56 AM EST [facility] at 1156 EST Clinical Information R97.20 - Elevated prostate specific antigen (PSA) [ICD-10-CM] 01/02/2024 11:56 AM EST [facility] Microscopic Description A small focus of 2-3 glands is noted with mild atypia. Outside PIN4 stain shows cytoplasmic racemase with patchy preserved basal cells on high molecular weight cytokeratin. 01/02/2024 11:56 AM EST [facility] Gross Description A. [id number] Received along with a corresponding pathology report from [facility] are 4 slide(s) labeled outside case: [id number] collected on 11/21/2017. 01/02/2024 11:56 AM EST [facility] Tissue Prostate / Unknown 10:49 AM EST 01/02/2024 10:49 AM EST Alcides Kelly MD LAB PATHOLOGY ORDERABLES [place] Result Performing Organization Address City/State/[facility] Co de Phone Number [facility] [address] [place] [address] documented in this encounter Visit Diagnoses Diagnosis Elevated prostate specific antigen (PSA) documented in this encounter Additional Health Concerns Assessment Noted Time A fall risk assessment has been complete d for the patient 08/26/2021 11:20 AM EDT documented as of this encounter Care Teams Hospital Sales Representative Relationship Specialty Start Date End Date Tico Prakash MD [address] [place] [address] PCP - General 03/13/21 documented as of this encounter
--- OUTSIDE RECORDS SUMMARY | 2025-07-02 11:27 | XMS_ITS | Encounter Summary ---
Author Organization [facility] Address [address] [place] [address] Care Team Providers Care Language Interpreter Name Role Phone Tico Prakash MD Primary Care Provider [phone] Encounter Details Date Type Department Care Team (Late st Contact Info) Description 12/12/2023 Orders Only External Location [address] [place] [address] Alli Najera MD [facility] [address] [address] Social History Tobacco Use Types [...] Magnetic Resonan ce 12/12/2023 7:59 AM EST us Alli Najera MD IMG MRI PROCEDURES Final Result documented in this encounter Visit Diagnoses Not on filedocumented in this encounter Additional Health Concerns Assessment Noted Time A fall risk assessment has been complete d for the patient 08/26/2021 11:20 AM EDT documented as of this encounter Care Teams Language Interpreter Relationship Specialty Start Date End Date Tico Prakash MD [address] [place] [address] PCP - General 03/13/21 documented as of this encounter
== END 2025-07-02 23:59 | disposition home or self-care (01) ==
LOC: RAD 10:59
PROVIDERS: PCP Family Medicine; Visit Provider Physician Assistant
DX: M19.031 Primary osteoarthritis, right wrist (principal)
CPT/HCPCS: 73110